=== PATIENT | male | born 1945 | race Caucasian/White ===

== ENCOUNTER → 2020-05-28 14:49 | Outpatient (BNVA) | payer OTHER, SELFPAY | PROVIDERS: Family Provider Internal Medicine; PCP Physician Assistant Medical; Visit Provider Urology | DX: N40.1 Benign prostatic hyperplasia with lower urinary tract symptoms (principal); N13.8 Other obstructive and reflux uropathy; R97.20 Elevated prostate specific antigen [PSA] | CPT/HCPCS: 81001 ==

== ENCOUNTER 2020-08-07 13:04 | Emergency (ER) | payer OTHER, SELFPAY ==
[2020-08-07 13:05] VITALS: BP 190/93; PULSE 58; RESP 18; TEMP 36.6; O2SAT 98; BMI 26.8
--- NOTE | 2020-08-07 13:32 | XR_ITS ---
WS: [id number] Exam: XR chest 1V portable [id number] Date/Time of Exam: 08/07/2020 1:32 PM Reason For Exam: hypotension Findings: The lungs are clear and fully expanded. Costophrenic angles are sharp. No infiltrates. Bronchovascula r relief appears normal. Cardiac silhouette is unremarkable. Bony elements are intact. XR/XR chest 1V portable [id number] IMPRESSION: Unremarkable chest radiograph.
--- NOTE | 2020-08-07 13:36 | ED_ITS ---
HPI - Arrhythmia/Palpitations General: Chief Complaint: Arrhythmia/Palpitations Stated Complaint: low bp/neck pain/left foot numbness/dizziness/fati Time Seen by Provider: 08/07/20 13:18 History of Present Illness: HPI narrative: Patient is a 75-year-old male with a history of hypertension, BPH, who presents to the emergency department with complaints of low blood pressure for about a month. The patient takes several medications for high blood pressure including lisinopril 40 mg twice a day, furosemide 40 mg daily, amlodipine 10 mg daily, tamsulosin 0.5 mg twice daily. About 1 month ago he started to notice that his blood pressure was low with systolic in the low 100s to high 90s and diastolic in the 40s. He was symptomatic with that including generalized weakness, dizziness, presyncope, but no syncopal episodes. He took it upon himself to reduce his blood pressure medications and eventually discontinued all of them. He states his heart rate would drop into the 30s sometimes. His normal resting heart rate is in the 40s. He finally called his primary care provider today and they asked him to go to the urgent care for evaluation but the urgent care stated under with illnesses like this and decided to send him to the emergency department for evaluation. He said his blood pressure was elevated this morning with systolic in the 150s but he did not take any of his antihypertensives. He is currently asymptomatic but has occasional left-sided neck pain. Associated symptoms: Deny nausea or vomiting Review of Systems General: Reports: 10 or more systems reviewed and unremarkable except in HPI and below Const: Denies: fever(s), chills or body aches Eyes: Denies: change in vision or blurry vision ENMT: Denies: throat pain, enlarged tonsils, odynophagia, hoarseness, mouth pain or swelling of lips/tongue Card: Denies: palpitations, irregular heart rhythm, edema or swelling of feet/ankles Resp: Denies: dyspnea, productive cough or non-productive cough GI: Denies: abdominal pain, nausea or vomiting : Denies: flank pain, dysuria, urinary frequency, urinary urgency or urinary hesitancy Musc: Denies: neck pain, back pain or extremity swelling Skin/Breast: Denies: rash, pruritus or erythema Neuro: Denies: headache(s), numbness in extremities or weakness in extremities Endo: Denies: polyuria, polydipsia or tired all the time PFSH ED PFSH: Medical History BPH w urinary obs/LUTS Elevated PSA Renal calculus Surgical History H/O colonoscopy H/O prostate biopsy H/O varicose vein ligation and stripping Family History Father Cancer PROSTATE Brother Cancer PROSTATE Mother Cancer COLON CANCER WITH METS Social History Smoking and tobacco status: former smoker Alcohol intake: current Alcohol intake frequency: 0-2 Drinks per Day Marital status: History of recent travel: No Physical Exam Const: COMMON NORMALS: no acute distress, average body habitus, patient oriented x3, no limitations, healthy appearing, alert and well nourished HENMT: COMMON NORMALS: normocephalic, atraumatic and moist oral mucous membranes HEAD & SCALP: normocephalic and atraumatic Eye: COMMON NORMALS: Equal, round and reactive pupils present, EOMs intact bilaterally, conjunctivae normal and no scleral icterus CONJUNCTIVA: Yes conjunctivae normal PUPIL: Yes Equal, round and reactive pupils present Neck/C-Spine: COMMON NORMALS: full ROM, supple, no meningeal signs, no JVD and No carotid bruits Chest: COMMONS NORMALS: normal inspection of the chest and normal palpation of entire chest wall Resp: COMMON NORMALS: normal respiratory effort, No retractions, No use of accessory muscles, clear to auscultation bilaterally and percussion normal AUSCULTATION: clear to auscultation bilaterally PERCUSSION: percussion normal Cardio: COMMON NORMALS: no JVD, regular rate, regular rhythm, S1 normal heart sound present, S2 normal heart sound present, No gallops present (Cardio), No clicks present (Cardio), No murmurs present (Cardio), No rub (Cardio) and Peripheral pulses 2+ throughout RATE: regular rate RHYTHM: regular rhythm HEART SOUNDS: S1 normal heart sound present and S2 normal heart sound present PERIPHERAL PULSES: Peripheral pulses 2+ throughout GI: COMMON NORMALS: Normal to inspection, nondistended, normoactive bowel sounds present, Soft to palpation, non-tender, No hepatosplenomegaly present, no masses and no bruits PALPATION: Yes Soft to palpation and Yes No hepatosplenomegaly present Extremity: COMMON NORMALS: normal to inspection, full ROM, capillary refill normal, no calf tenderness and no pedal edema Neuro: COMMON NORMALS: patient oriented x3 SENSORIUM/ORIENTATION: Yes alert MENINGEAL SIGNS: Yes no meningeal signs Skin: COMMON NORMALS: no rashes or lesions noted, no wounds, turgor normal, no jaundice, no petechiae and no mottling GENERAL SKIN EXAM: no rashes or lesions noted and turgor normal Course Reevaluation(s): Reevaluation #1: Discussed his lab and imaging findings with him. Negative for acute findings. I believe his symptoms are secondary to adverse effect of his antihypertensive. He states that in the last 6 months he has changed his diet and is eating mainly vegetables with no meats and he has lost about 20 pounds. I advised that he is probably not requiring as much antihypertensives as prior to losing weight and changing his diet so I advised that he speak with his primary care provider and adjust his antihypertensives. Advised that he start lisinopril at 40 mg daily only and not take any other of his hypertensives He should follow-up with his primary care provider. Time: 17:11 Vital Signs: Vital signs: Vital Signs Temperature 97.8 F 08/07/20 13:05 Pulse Rate 51 L 08/07/20 17:41 Respiratory Rate 18 08/07/20 17:41 Blood Pressure 174/80 08/07/20 17:41 Pulse Oximetry 100 08/07/20 17:41 MDM - Arrhythmia/Palpitations MDM Narrative: Medical decision making narrative: 75-year-old gentleman came in because he had had low blood pressure that was symptomatic at home. He had therefore stopped his blood pressure medications. Evaluation in the ED was unremarkable for any acute findings. He is advised to follow-up with his primary care provider for adjustment of his medications. His blood pressure was a little elevated here and he has been off his medications for at least 2 weeks. He is advised to start lisinopril only at 40 mg daily and to follow-up with his primary care provider. Medical Records: Attestation: I reviewed the patient's medical records. Lab Data: Attestation: I reviewed the patient's lab results. Labs: Lab Results 08/07/20 08/07/20 08/07/20 Range/Units 14:10 14:10 14:10 WBC 5.3 (4.0-10.0) 10^3/ uL RBC 4.48 (4.1-5.3) 10^6/u L Hgb 14.6 (11.7-16.6) g/dL Hct 44.4 (42.0-52.0) % MCV 99.1 H (80-94) fL MCH 32.6 (28.0-34.0) pg MCHC 32.9 (30.0-36.0) g/dL RDW 12.2 (12.1-15.1) % Plt Count 174 (130-400) 10^3/c mm MPV 10.6 H (7.4-10.4) fL Neut % (Auto) 62.9 % Lymph % (Auto) 27.5 % [place] % (Auto) 6.3 % Eos % (Auto) 2.3 % Baso % (Auto) 0.6 % Neut # (Auto) 3.32 (1.8-7.7) 10^3/u L Lymph # (Auto) 1.5 (0.8-4.8) 10^3/u L [place] # (Auto) 0.3 (0.2-0.9) 10^3/u L Eos # (Auto) 0.1 (0.0-0.8) 10^3/u L Baso # (Auto) 0.0 (0.0-0.1) 10^3/u L Nucleated RBC % (a uto) 0 % Nucleated RBCs # 0.0 /100WBC PT 13.80 (12.1-14.9) SECO NDS INR 1.03 (0.8-1.2) Sodium 141 (136-145) mmol/L Potassium 4.2 (3.5-5.1) mmol/L Chloride 107 (98-107) mmol/L Carbon Dioxide 27 (22-29) mmol/L Anion Gap 11.2 (5-19) BUN 15 (8-23) mg/dL Creatinine 0.6 L (0.7-1.2) mg/dL GFR Calculation Not Reportable Glucose 90 (65-115) mg/dL Calculated Osmolal ity 292 (285-295) mOsm/k g Calcium 9.8 (8.5-10.5) mg/dL Total Bilirubin 1.1 (0.15-1.2) mg/dL AST 18 (0-40) U/L ALT 24 (0-41) U/L Alkaline Phosphata se 60 (40-130) IU/L Troponin T Baselin e (0-15) ng/L Troponin T 120 Min [place] (0-15) ng/L Delta Troponin T (0-10) ABS# NT-Pro-B Natriuret Pep 163 H (0-125) pg/mL Total Protein 6.1 L (6.6-8.7) g/dL Albumin 4.1 (3.5-5.2) g/dL Globulin 2.0 (1.3-4.6) g/dL Urine Color (Yellow) Urine Appearance (CLEAR) Urine pH (5-7) Ur Specific Gravit y (1.005-1.030) Urine Protein (Negative) Urine Glucose (UA) (Normal) Urine Ketones (Negative) Urine Blood (Negative) Urine Nitrate (Negative) Urine Bilirubin (Negative) Urine Urobilinogen (Negative) mg/dL Ur Leukocyte Amira ase (Negative) Urine RBC (0-2) /hpf Urine WBC (0-5) /hpf Ur Squamous Epith Cells (0-5) /hpf Amorphous Sediment Urine Bacteria (NONE) /hpf Hyaline Casts /lpf 08/07/20 08/07/20 08/07/20 Range/Units 14:10 14:35 16:12 WBC (4.0-10.0) 10^3/ uL RBC (4.1-5.3) 10^6/u L Hgb (11.7-16.6) g/dL Hct (42.0-52.0) % MCV (80-94) fL MCH (28.0-34.0) pg MCHC (30.0-36.0) g/dL RDW (12.1-15.1) % Plt Count (130-400) 10^3/c mm MPV (7.4-10.4) fL Neut % (Auto) % Lymph % (Auto) % [place] % (Auto) % Eos % (Auto) % Baso % (Auto) % Neut # (Auto) (1.8-7.7) 10^3/u L Lymph # (Auto) (0.8-4.8) 10^3/u L [place] # (Auto) (0.2-0.9) 10^3/u L Eos # (Auto) (0.0-0.8) 10^3/u L Baso # (Auto) (0.0-0.1) 10^3/u L Nucleated RBC % (a uto) % Nucleated RBCs # /100WBC PT (12.1-14.9) SECO NDS INR (0.8-1.2) Sodium (136-145) mmol/L Potassium (3.5-5.1) mmol/L Chloride (98-107) mmol/L Carbon Dioxide (22-29) mmol/L Anion Gap (5-19) BUN (8-23) mg/dL Creatinine (0.7-1.2) mg/dL GFR Calculation Glucose (65-115) mg/dL Calculated Osmolal ity (285-295) mOsm/k g Calcium (8.5-10.5) mg/dL Total Bilirubin (0.15-1.2) mg/dL AST (0-40) U/L ALT (0-41) U/L Alkaline Phosphata se (40-130) IU/L Troponin T Baselin e 16 H (0-15) ng/L Troponin T 120 Min [place] 16.35 H (0-15) ng/L Delta Troponin T 0.35 (0-10) ABS# NT-Pro-B Natriuret Pep (0-125) pg/mL Total Protein (6.6-8.7) g/dL Albumin (3.5-5.2) g/dL Globulin (1.3-4.6) g/dL Urine Color Yellow (Yellow) Urine Appearance Clear (CLEAR) Urine pH 6 (5-7) Ur Specific Gravit y 1.015 (1.005-1.030) Urine Protein Trace (Negative) Urine Glucose (UA) Norm (Normal) Urine Ketones Negative (Negative) Urine Blood Neg (Negative) Urine Nitrate Negative (Negative) Urine Bilirubin Neg (Negative) Urine Urobilinogen Norm (Negative) mg/dL Ur Leukocyte Amira ase Negative (Negative) Urine RBC None (0-2) /hpf Urine WBC None (0-5) /hpf Ur Squamous Epith Cells 0-4 H (0-5) /hpf Amorphous Sediment Not Reportable Urine Bacteria Trace (NONE) /hpf Hyaline Casts 0-4 H /lpf Imaging Data^: CXR: Attestation: I personally reviewed and interpreted this imaging study as follows: Radiologist's impression: [address] [address] XRay Report Signed Patient: Aquilino Roger #: [id number] : 7Acct#:[id number] Age/Sex: 75 / MADM Date: 08/07/20 Loc: ERRoom/Bed: Attending Dr: Ordering Provider/Ordering MD: Ramiro Howard MD, [facility] [place] Date of Service: 08/07/20 Procedure(s): XR chest 1V portable [id number] Accession Number(s): [id number] Report Number: [id number] WS: [id number] Exam: XR chest 1V portable [id number] Date/Time of Exam: 08/07/2020 1:32 PM Reason For Exam: hypotension Findings: The lungs are clear and fully expanded. Costophrenic angles are sharp. No infiltrates. Bronchovascular relief appears normal. Cardiac silhouette is unremarkable. Bony elements are intact. XR/XR chest 1V portable [id number] IMPRESSION: Unremarkable chest radiograph. Dictated By:Ronni Cedeño DO Signed By:Andres Willis Date/Time:08/07/201402 DD/ 1402 EKG Data^: EKG 1: Attestation: I personally reviewed and interpreted this EKG as follows: EKG interpretation date: 08/07/20 EKG interpretation time: 13:13 Prior EKG tracings: not available for review Interpretation: Sinus bradycardia with first-degree AV block. Heart rate [address] changes. Other EKG comments: Chest X-Ray 08/07/20 13:32 IMPRESSION: Unremarkable chest radiograph. EKG 2: Attestation: I personally reviewed and interpreted this EKG as follows: EKG interpretation date: 08/07/20 EKG interpretation time: 15:41 Prior EKG tracings: available for review Interpretation: Sinus bradycardia. Heart rate [address] changes. Other EKG comments: Chest X-Ray 08/07/20 13:32 IMPRESSION: Unremarkable chest radiograph. Discharge Plan Discharge Patient Disposition: Home Clinical Impression: Adverse effect of other antihypertensive drugs, initial encounter Condition: Stable Prescriptions: New lisinopril 40 mg tablet 40 mg PO DAILY Qty: 30 RF: 0 Continued atorvastatin 20 mg tablet 20 mg PO DAILY RF: 0 melatonin 5 mg capsule 5 mg PO DAILY RF: 0 finasteride 5 mg tablet 5 mg PO DAILY Qty: 90 RF: 3 tamsulosin 0.4 mg capsule 0.4 mg PO BID Qty: 180 RF: 3 Held furosemide 40 mg tablet 40 mg PO DAILY RF: 0 Hold Instructions: Hold until you speak to your family doctor amlodipine 10 mg tablet 10 mg PO DAILY RF: 0 Hold Instructions: Hold until you speak to your family doctor Discontinued lisinopril 40 mg tablet 40 mg PO BID RF: 0 Discharge Orders: Discharge Order (Routine); Ordered 08/07/20 Ordered By: Ramiro Howard Referrals: Ralph Angeles [Primary Care Provider] - 1-3 days Discharge Diet: Usual diet Discharge Activity: Increase activity as tolerated Patient Instructions: Adverse Drug Reaction (ED) Activity Restrictions/Additional Instructions: Return for any new or worsening symptoms. Follow-up with your primary care provider within 3 days. Stop all your blood pressure medicines and take lisinopril only at 40 mg once a day. Discharge Date/Time: 08/07/20 17:42 Coding Level of Care Code ED Legal Coordinator for Chg Fwd Exam Comprehensive
[2020-08-07 14:29] LABS: Basophils % 0.6 %; Eosinophils # 0.1 10^3/uL (0.0-0.8); Eosinophils % 2.3 %; Hematocrit 44.4 % (42.0-52.0); Hemoglobin 14.6 g/dL (11.7-16.6); Lymphocytes # 1.5 10^3/uL (0.8-4.8); Lymphocytes % 27.5 %; Mean Corpuscular HGB Conc 32.9 g/dL (30.0-36.0); Mean Corpuscular Hemoglobin 32.6 pg (28.0-34.0); Mean Corpuscular Volume 99.1 fL (80-94); Mean Platelet Volume 10.6 fL (7.4-10.4); Monocytes # 0.3 10^3/uL (0.2-0.9); Monocytes % 6.3 %; Neutrophils # 3.32 10^3/uL (1.8-7.7); Neutrophils % 62.9 %; Nucleated Red Blood Cells % 0 %; Platelet Count 174 10^3/cmm (130-400); Red Blood Count 4.48 10^6/uL (4.1-5.3); Red Cell Distribution Width 12.2 % (12.1-15.1); White Blood Count 5.3 10^3/uL (4.0-10.0)
[2020-08-07 14:45] LABS: INR 1.03 (0.8-1.2)
[2020-08-07 14:51] LABS: Troponin(5th) Baseline 16 ng/L (0-15)
[2020-08-07 14:59] LABS: Alanine Aminotransferase 24 U/L (0-41); Albumin Level 4.1 g/dL (3.5-5.2); Alkaline Phosphatase 60 IU/L (40-130); Anion Gap 11.2 (5-19); Aspartate Amino Transferase 18 U/L (0-40); Blood Urea Nitrogen 15 mg/dL (8-23); Calcium 9.8 mg/dL (8.5-10.5); Carbon Dioxide 27 mmol/L (22-29); Chloride 107 mmol/L (98-107); Glucose 90 mg/dL (65-115); NT Pro B Type Natriuretic Pept 163 pg/mL (0-125); Osmolality Calculated 292 mOsm/kg (285-295); Potassium 4.2 mmol/L (3.5-5.1); Sodium 141 mmol/L (136-145); Total Bilirubin 1.1 mg/dL (0.15-1.2); Total Protein 6.1 g/dL (6.6-8.7)
[2020-08-07 15:18] LABS: Add Urine Microscopic? YES; Bilirubin Urine Neg (Negative); Blood Urine Neg (Negative); Glucose Urine UA Norm (Normal); Ketones Urine Negative (Negative); Leukocyte Esterase Urine Negative (Negative); Nitrate Urine Negative (Negative); Protein Urine Trace (Negative); Specific Gravity, Urine 1.015 (1.005-1.030); Urine Appearance Clear (CLEAR); Urine Color Yellow (Yellow); Urobilinogen Urine Norm (Negative); pH Urine 6 (5-7)
[2020-08-07 15:19] LABS: Bacteria Urine TRACE /hpf; Hyaline Casts Urine 0-4 /lpf; Squamous Epithelial Cell Urine 0-4 /hpf (0-5)
[2020-08-07 15:20] LABS: Add Urine Culture? No
[2020-08-07 16:54] LABS: Troponin 5 2HR 16.35 ng/L (0-15); Troponin 5 2HR Delta 0.35 ABS# (0-10)
[2020-08-07 17:41] VITALS: BP 174/80; PULSE 51; RESP 18; O2SAT 100
--- NOTE | 2020-08-07 17:47 | ECG_ITS ---
[facility] Test Date: 2020-08-07 Pat Name: Aquilino Roger Department: Room: Gender: Male Gasfitter: : 1945 Requested By: Ramiro Howard I Order Number: [id number] Reading MD: Measurements Intervals [place] Rate: 51 P: 48 SD: 236 QRS: 13 QRSD: 99 T: 47 QT: 404 QTc: 373 Interpretive Statements SINUS BRADYCARDIA WITH FIRST DEGREE AV BLOCK WITH OCCASIONAL SUPRAVENTRICULAR PREMATURE COMPLEXES No previous ECG available for comparison [id number]
--- NOTE | 2020-08-07 17:56 | ECG_ITS ---
[facility] Test Date: 2020-08-07 Pat Name: Aquilino Roger Department: Room: Gender: Male Respiratory Care Practitioner: : 1945 Requested By: Ramiro Howard I Order Number: [id number] Reading MD: Measurements Intervals [place] Rate: 46 P: -30 VA: 211 QRS: 12 QRSD: 102 T: 50 QT: 439 QTc: 386 Interpretive Statements SINUS BRADYCARDIA WITH SINUS ARRHYTHMIA WITH FIRST DEGREE AV BLOCK No previous ECG available for comparison [email or web address]
== END 2020-08-07 17:42 | disposition home or self-care (01) ==
PROVIDERS: Emergency Provider Family Medicine; PCP Physician Assistant Medical
DX: T88.7XXA Unspecified adverse effect of drug or medicament, initial encounter (principal); T46.5X5A Adverse effect of other antihypertensive drugs, initial encounter; Z87.891 Personal history of nicotine dependence
CPT/HCPCS: 12345; 71045; 80053; 81001; 83880; 84484; 85025; 85610; 93005; 99282; 99283

== ENCOUNTER 2020-11-07 12:26 | Emergency (ER) | payer OTHER, MEDICARE, SELFPAY ==
[2020-11-07 12:26] VITALS: BP 156/90; PULSE 61; RESP 18; TEMP 36.3; O2SAT 95; BMI 27.8
--- NOTE | 2020-11-07 12:33 | XR_ITS ---
WS: [id number] Exam: XR knee LT 3V* [id number] Date/Time of Exam: 11/07/2020 12:44 PM Reason For Exam: fall/pain There is a comminuted displaced fracture of the patella. The inferior fragment is somewhat rotated. A nterior soft tissue swelling noted. The remaining bony structures of the knee are intact. Moderate tr icompartmental DJD. No obvious joint effusion. XR/XR knee LT 3V* [id number] IMPRESSION: 1. Comminuted displaced fracture of the patella with anterior soft tissue swell ing. No other bony injury. 2. Moderate tricompartmental DJD.
--- NOTE | 2020-11-07 12:42 | ED_ITS ---
Documented by User: KUNAL Preciado 11/07/20 14:00 HPI - Extremity Injury (Lower) General: Chief Complaint: Extremity Injury, Lower Stated Complaint: FALL Time Seen by Provider: 11/07/20 12:33 Source: patient Mode of arrival: wheelchair Limitations: no limitations History of Present Illness: HPI Narrative: Patient is a nice 75-year-old male who presents to ED today for evaluation of a left knee injury. Patient tells me he was walking when he slipped on ice. He states his right leg slipped and then he landed directly onto his left knee. Patient has not been ambulatory since the fall. He has no other complaints other than left knee pain at this time. complaint: knee injury Onset (ago): hour(s) Injury: Left: knee Place: street/outdoors Severity: moderate Relieving factors: immobilization Exacerbating factors: weight bearing, movement and palpation Context: fall Associated symptoms: Reports inability to bear weight Other symptoms: none Review of Systems Card: Denies: chest pain Resp: Denies: dyspnea GI: Denies: nausea or vomiting Musc: Reports: joint pain (L knee), joint swelling (L knee) and limited range of motion (L knee secondary to pain/swelling); Denies: neck pain, back pain, extremity pain or extremity swelling Neuro: Denies: numbness in extremities, weakness in extremities or sensory changes [facility] ED PFSH: Medical History (Updated 11/07/20 @ 13:07 by KUNAL Preciado) BPH w urinary obs/LUTS Elevated PSA Renal calculus Surgical History H/O colonoscopy H/O prostate biopsy H/O varicose vein ligation and stripping Family History Father Cancer PROSTATE Brother Cancer PROSTATE Mother Cancer COLON CANCER WITH METS Social History Smoking and tobacco status: former smoker Alcohol intake: current Alcohol intake frequency: 0-2 Drinks per Day Marital status: History of recent travel: No Physical Exam Const: COMMON NORMALS: no acute distress, average body habitus, patient oriented x3, no limitations, healthy appearing, alert and well nourished ORIENTATION/CONSCIOUSNESS: Yes awake, Yes oriented to person, Yes oriented to place and Yes oriented to time Extremity: GENERAL: Yes normal exam except as noted OTHER: extreme tenderness and marked swelling noted to anterior L knee; there are no abrasions/lacerations; knee flexion very limited secondary to pain/swelling; no obvious joint laxity noted; extremity NV intact; no other pain noted to extremity apart from knee Neuro: COMMON NORMALS: patient oriented x3, no focal motor deficits and no sensory deficits noted SENSORIUM/ORIENTATION: Yes alert, Yes oriented to person, Yes oriented to place and Yes oriented to time Skin: COMMON NORMALS: no rashes or lesions noted GENERAL SKIN EXAM: no rashes or lesions noted Course Consultations: Consultation #1: Dr. Gregory-agrees with plan for knee immoblizer and will see in office; recommends PCR COVID test as plan will be for surgery on Wednesday. Vital Signs: Vital signs: Vital Signs Temperature 97.9 F 11/07/20 14:27 Pulse Rate 63 11/07/20 14:27 Respiratory Rate 16 11/07/20 14:27 Blood Pressure 145/63 11/07/20 14:27 Pulse Oximetry 95 11/07/20 14:27 MDM - Extremity Injury (Lower) MDM Narrative: Medical decision making narrative: Case management tried to schedule patient an appointment with Dr. Gregory however orthopedic office stated they cannot schedule this appointment as patient has [facility] insurance and he is not contracted through the [facility] at this time. Case management spoke to their office and Dr. Barrera has graciously agreed to see patient on Wednesday at 9 AM for evaluation. Patient was placed in knee in immobilizer, given crutches, and I spoke to him about the importance of ice and elevation to help with swelling. Return to ED precautions given. Imaging Data^: XR L knee: Radiologist's impression: [address] [address] XRay Report Signed Patient: Aquilino Roger Unit #: [id number] : 1945 Age/Sex: 75 / M ADM Date: 11/07/20 Loc: ER Room/Bed: Attending Dr: Ordering Provider/Ordering MD: Sunny Masters MD Date of Service: 11/07/20 Procedure(s): XR knee LT 3V* [id number] Accession Number(s): [id number] Report Number: [id number] WS: [id number] Exam: XR knee LT 3V* [id number] Date/Time of Exam: 11/07/2020 12:44 PM Reason For Exam: fall/pain There is a comminuted displaced fracture of the patella. The inferior fragment is somewhat rotated. Anterior soft tissue swelling noted. The remaining bony structures of the knee are intact. Moderate tricompartmental DJD. No obvious joint effusion. XR/XR knee LT 3V* [id number] IMPRESSION: 1. Comminuted displaced fracture of the patella with anterior soft tissue swelling. No other bony injury. 2. Moderate tricompartmental DJD. Dictated By: Ronni Cedeño DO Signed By: Ronni Cedeño DO Signed Date/Time: 11/07/20 1250 DD/ 1248 Discharge Plan Discharge Patient Disposition: Home Clinical Impression: Patellar fracture Qualifiers: Encounter type: initial encounter Fracture type: closed Fracture morphology: comminuted Fracture alignment: displaced Laterality: left Qualified Code(s): S82.042A - Displaced comminuted fracture of left patella, initial encounter for closed fracture Condition: Stable Prescriptions: New hydrocodone-acetaminophen 5-325 mg tablet 1 tab PO Q4H PRN (Reason: pain) Qty: 20 RF: 0 No Action atorvastatin 20 mg tablet 20 mg PO BID@0700,2200 RF: 0 furosemide 40 mg tablet See Rx Instructions .ROUTE .COMPLEX RF: 0 Hold Instructions: Hold until you speak to your family doctor amlodipine 10 mg tablet 10 mg PO DAILY@0700 RF: 0 Hold Instructions: Hold until you speak to your family doctor melatonin 5 mg capsule 5 mg PO DAILY@2200 RF: 0 tamsulosin 0.4 mg capsule 0.4 mg PO BID@0700,2200 RF: 0 lisinopril 40 mg tablet 40 mg PO DAILY@0700 RF: 0 Discharge Orders: Discharge ED (Routine); Ordered 11/07/20 Ordered By: Maida Desai Referrals: Geovanna Barrera MD [Physician] - Patient Instructions: Patellar Fracture (ED), Knee Immobilizer (ED) Activity Restrictions/Additional Instructions: Absolutely no weight-bearing on your left leg. You need to ice and elevate extremity as much as possible to aid in the reduction of swelling. You will see Dr. Barrera on Wednesday at 9am for a follow-up appointment. Coding Level of Care Code ED Mailroom Assistant for Chg Fwd Exam Expanded Problem Focused Documented by User: Wilber Goldsmith, 11/07/20 15:55 HPI - Extremity Injury (Lower) General: Chief Complaint: Extremity Injury, Lower Stated Complaint: FALL Time Seen by Provider: 11/07/20 12:33 [facility] ED PFSH: Medical History (Updated 11/07/20 @ 13:07 by KUNAL Preciado) BPH w urinary obs/LUTS Elevated PSA Renal calculus Surgical History H/O colonoscopy H/O prostate biopsy H/O varicose vein ligation and stripping Family History Father Cancer PROSTATE Brother Cancer PROSTATE Mother Cancer COLON CANCER WITH METS Social History Smoking and tobacco status: former smoker Alcohol intake: current Alcohol intake frequency: 0-2 Drinks per Day Marital status: History of recent travel: No Course Vital Signs: Vital signs: Vital Signs Temperature 97.9 F 11/07/20 14:27 Pulse Rate 63 11/07/20 14:27 Respiratory Rate 16 11/07/20 14:27 Blood Pressure 145/63 11/07/20 14:27 Pulse Oximetry 95 11/07/20 14:27 MDM - Extremity Injury (Lower) MDM Narrative: Medical decision making narrative: I supervised care provided to Aquilino Roger by the MACHINE INSTALLER/PA. Reviewed chart x- rays and course of care with MACHINE INSTALLER. Discharge Plan Discharge Patient Disposition: Home Clinical Impression: Patellar fracture Qualifiers: Encounter type: initial encounter Fracture type: closed Fracture morphology: comminuted Fracture alignment: displaced Laterality: left Qualified Code(s): S82.042A - Displaced comminuted fracture of left patella, initial encounter for closed fracture Condition: Stable Prescriptions: New hydrocodone-acetaminophen 5-325 mg tablet 1 tab PO Q4H PRN (Reason: pain) Qty: 20 RF: 0 No Action atorvastatin 20 mg tablet 20 mg PO BID@0700,2200 RF: 0 furosemide 40 mg tablet See Rx Instructions .ROUTE .COMPLEX RF: 0 Hold Instructions: Hold until you speak to your family doctor amlodipine 10 mg tablet 10 mg PO DAILY@0700 RF: 0 Hold Instructions: Hold until you speak to your family doctor melatonin 5 mg capsule 5 mg PO DAILY@2200 RF: 0 tamsulosin 0.4 mg capsule 0.4 mg PO BID@0700,2199 RF: 0 lisinopril 40 mg tablet 40 mg PO DAILY@0700 RF: 0 Discharge Orders: Discharge ED (Routine); Ordered 11/07/20 Ordered By: Maida Desai Referrals: Geovanna Barrera MD [Physician] - Patient Instructions: Patellar Fracture (ED), Knee Immobilizer (ED) Activity Restrictions/Additional Instructions: Absolutely no weight-bearing on your left leg. You need to ice and elevate extremity as much as possible to aid in the reduction of swelling. You will see Dr. Barrera on Wednesday at 9am for a follow-up appointment. Coding Level of Care Code ED Mailroom Assistant for Bert Fwd Exam Expanded Problem Focused
[2020-11-07 13:03] VITALS: BP 156/90; PULSE 58; PULSE 60; RESP 16; O2SAT 97
--- NOTE | 2020-11-07 13:53 | DCPLANNER ---
Addendum entered by Prema Small 11/11/20 15:56: Patient attended appointment scheduled for 11.11.[address] Barrera at [facility]. Original Note: cosmetic manager was asked to schedule a follow up appointment with ortho. Dr. Gregory is talent development consultant, but is not in network with the [facility]. cosmetic manager asked the clinic if another physician in the clinic would be able to see patient. cosmetic manager spoke with Rosalba, a follow up appointment is scheduled for Wednesday, November 11, 2020 at 9:[address] Barrera. cosmetic manager emailed patients information over a secure email to January with [facility] in the community for the auth to be started for patient with the [facility]. cosmetic manager informed ED physician
[2020-11-07 14:27] VITALS: BP 145/63; PULSE 63; RESP 16; TEMP 36.6; O2SAT 95
[2020-11-08 19:02] LABS: Coronavirus Test Green County Not Detected
--- NOTE | 2020-11-09 08:35 | PC.NURSE ---
Pt called and notified of negative COVID result.
== END 2020-11-07 14:40 | disposition home or self-care (01) ==
PROVIDERS: Emergency Provider Physician Assistant; PCP Physician Assistant Medical
DX: S82.042A Displaced comminuted fracture of left patella, initial encounter for closed fracture (principal); Z87.891 Personal history of nicotine dependence; W00.0XXA Fall on same level due to ice and snow, initial encounter
CPT/HCPCS: 12345; 29530; 73562; 87635; 99281; 99283; E0114

== ENCOUNTER → 2020-11-11 09:52 | Outpatient (BNVA) | payer OTHER, SELFPAY | PROVIDERS: PCP Physician Assistant Medical; Referring Provider Family Medicine; Visit Provider Specialist | DX: S82.042A Displaced comminuted fracture of left patella, initial encounter for closed fracture (principal) | CPT/HCPCS: 73560 ==

== ENCOUNTER 2020-11-12 09:24 | Outpatient (CLI) | payer OTHER, SELFPAY ==
--- NOTE | 2020-11-12 09:30 | CT_ITS ---
WS: [id number] CT LEFT KNEE, NONCONTRAST, 3-D RECONSTRUCTIONS. HISTORY: S82.042A - Displaced comminuted fracture of left patella, initial encounter for closed fract ure Technique: All CT scans at [facility] use at least one of these dose optimization techniq ues: automated exposure control; mA and/or kV adjustment per patient size (includes targeted exams wh ere dose is matched to clinical indication); or iterative reconstruction. DLP: 248.92 mGy.cm COMPARISON: 11/11/2020 Acute comminuted patellar fracture. Multiple fragments within the patella. Within the superior third of the patella is a distracted fracture. Fracture is distracted 13 mm. Additional fracture through th e inferior third of the patella by 3 mm. Very slight lateral subluxation of the patella. Th ere is also fracture fragment displaced laterally by 8 mm. Tibial plateau and proximal fibula are intact. Femoral condyles are intact. Chondrocalcinosis in the medial and lateral compartments. There is a very large amount of soft tissue edema and hemorrhage surrounding the patella. Small supra patellar joint effusion. CT/CT knee LT wo con* [id number] IMPRESSION: 1. Markedly comminuted fractures involving the patella with displacement of mu ltiple fracture fragments. 2. Large amount of soft tissue edema surrounding the patella. 3. No additional fractures. 4. Chondrocalcinosis in the medial and lateral compartments.
== END 2020-11-12 09:25 | disposition home or self-care (01) ==
LOC: RAD 09:25
PROVIDERS: PCP Physician Assistant Medical; Visit Provider Specialist
DX: S82.042A Displaced comminuted fracture of left patella, initial encounter for closed fracture (principal); X58.XXXA Exposure to other specified factors, initial encounter; R60.0 Localized edema; M11.262 Other chondrocalcinosis, left knee
CPT/HCPCS: 73700; L1812

== ENCOUNTER 2020-11-12 16:53 | Day surgery (SDC) | payer OTHER, SELFPAY ==
[2020-11-11 17:37] VITALS: BMI 27.8
[2020-11-12] VITALS (8 sets, daily range): BP systolic 114–144; BP diastolic 55–75; PULSE 57–68; RESP 16–22; TEMP 36.4–37.1; O2SAT 95–100
--- NOTE | 2020-11-12 | XR_ITS ---
WS: [id number] C-ARM RADIOGRAPHS LEFT KNEE; 3 IMAGES HISTORY: OR PICS COMPARISON: 2020 Intraoperative imaging with stabilization using pins and cerclage wires of the markedly comminuted pa tellar fracture. Fractures are now in good position and alignment. XR/XR knee LT 1-2V 65885 IMPRESSION: Status post fixation comminuted patellar fracture in good alignment.
--- NOTE | 2020-11-12 | SCC_ITS ---
Procedure Done: Open reduction internal fixation left comminuted displaced patella fracture with cerclage wire and tension band 12.2 seconds of fluoroscopic guidance, for a cumulative dose of 0.67 mGy, was provided to Dr. Barrera by the radiology department. C-arm images of the LEFT knee were saved for the patient's permanent record. [facility]
--- NOTE | 2020-11-12 11:46 | ECG_ITS ---
[facility] Test Date: 2020-11-12 Pat Name: Aquilino Roger Department: Room: Gender: Male Operational Trainer: vida [place]: 1945 Requested By: Geovanna Barrera Order Number: [id number] Geoffrey MD: OSMIN PECK Measurements Intervals Tabiona Rate: 65 P: CO: QRS: 21 QRSD: 103 T: 55 QT: 386 QTc: 404 Interpretive Statements Sinus rythm with sinus arrythmia ABNORMAL RHYTHM ECG Compared to ECG 08/07/2020 15:41:58 Sinus bradycardia no longer present Sinus arrhythmia no longer present First degree AV block no longer present Electronically Signed On 11-12-2020 18:09:34 FASHION SUPERVISOR by OSMIN PECK [id number]
[2020-11-12] MEDS: sodium chloride 0.9% 1,000 ML 30 ML IV (12:26)
[2020-11-12] MEDS: CELEcoxib 200 mg Capsule 400 MG PO (12:27)
--- NOTE | 2020-11-12 12:43 | W.PM.OPSUD ---
Surgery/Procedure H&P Update DATE OF PROCEDURE: November 12, 2020 DATE H&P PERFORMED: 11/11/20 H&P UPDATE INFORMATION: I have reviewed H&P completed within last 30 days, I have examined patient prior to procedure, No changes to prior documentation and H&P is in [facility] [place] on date indicated PREOP DIAGNOSIS: Left patella fracture PLANNED PROCEDURE: Operation Date: 11/12/20 13:25 Proposed Procedures p ORIF Patella left 10996 S82.042A(Left) - Geovanna Barrera MD Related Problem List Diagnoses (1) Patellar fracture: Qualifiers: Encounter type: initial encounter Fracture alignment: displaced Fracture morphology: comminuted Fracture type: closed Laterality: left Qualified Code(s): S82.042A - Displaced comminuted fracture of left patella, initial encounter for closed fracture
--- NOTE | 2020-11-12 13:01 | ANES.PREANE2 ---
Pre-Anesthetic Assessment Pre-Anesthetic Assessment: Height/Weight: Height 1.83 m Weight 92.986 kg Temp Pulse Resp BP Pulse Ox 98.7 F 65 18 140/75 98 11/12/20 11:55 11/12/20 11:55 11/12/20 11:55 11/12/20 11:55 11/12/20 11:55 Preop Diagnosis: Left patella fracture Proposed Procedure: Operation Date: 11/12/20 13:25 Proposed Procedures p ORIF Patella left 16215 S82.042A(Left) - Geovanna Barrera MD Familial anesthetic complications: None Was Beta Radha taken within 24 hours: N/A Last intake: Intake Last Liquid Date 11/11/20 Last Liquid Time 19:00 Last Solid Date 11/11/20 Last Solid Time 19:00 Social: Social History: No alcohol and No tobacco Exam: Pre-Anes Outpt Exam: alert, oriented x 3, clear to auscultation bilaterally and regular rate & rhythm Airway: Cervical ROM: WNL MP: 2 Dentition: Other (5 missing teeth) CV/HEM: CV/HEM: HTN : : Chronic renal Insufficiency Metabolic: Metabolic: Hyperlipidemia Anesthetic Plan: ASA status: 3 Anesthesia: General Risk of > 500 ml blood loss (7ml/kg in children): No Meds/Allergies Current Medications: Current Medications Generic Name Dose Route Start Last Admin Trade Name Freq PRN Reason Stop Dose Admin Sodium Chloride 1,000 mls @ 30 ml s/hr 11/12/20 11:45 11/12/20 12:26 Sodium Chloride 0.9% IV 11/13/20 11:44 30 mls/hr .Q24H EDUARD Administration PFSH Anesthesia PFSH: Medical History BPH w urinary obs/LUTS Elevated PSA Renal calculus Surgical History H/O colonoscopy H/O prostate biopsy H/O varicose vein ligation and stripping Family History Father Cancer PROSTATE Brother Cancer PROSTATE Mother Cancer COLON CANCER WITH METS Social History Smoking and tobacco status: former smoker Alcohol intake: current Alcohol intake frequency: 0-2 Drinks per Day Marital status: History of recent travel: No Data Anesthesia Cardiac Studies: No Data to Display
[2020-11-12 14:19] LABS: Alanine Aminotransferase 17 U/L (0-41); Albumin Level 3.6 g/dL (3.5-5.2); Alkaline Phosphatase 61 IU/L (40-130); Aspartate Amino Transferase 17 U/L (0-40); Blood Urea Nitrogen 19 mg/dL (8-23); Calcium 9.6 mg/dL (8.5-10.5); Carbon Dioxide 26 mmol/L (22-29); Chloride 107 mmol/L (98-107); Globulin 2.9 g/dL (1.3-4.6); Glucose 94 mg/dL (65-115); Osmolality Calculated 298 mOsm/kg (285-295); Sodium 143 mmol/L (136-145); Total Bilirubin 1.5 mg/dL (0.15-1.2); Total Protein 6.5 g/dL (6.6-8.7)
[2020-11-12] MEDS: ceFAZolin 1,000 mg SDV 1000 MG IRRIGATION (14:55)
[2020-11-12] MEDS: fentaNYL 50 mcg/mL INJ 2mL IVP (16:00)
--- NOTE | 2020-11-12 16:06 | PM.OP ---
Operative Report Date of procedure: November 12, 2020 Pre-op Diagnosis: Left patella fracture, comminuted and displaced Post-op diagnosis: same Post-op Findings: Comminuted fracture patella with displacement. Procedure Done: Open reduction internal fixation left comminuted displaced patella fracture with cerclage wire and tension band Implants: 2 x 0.062 K wires with cerclage and tension banding Specimens removed/disposition: Bone, disposed of Pathology: none sent Surgeon: Geovanna Barrera Rodeo Rider: Kaila Rivera or technicians Anesthesia: General (Intubated, ASA 3) Estimated blood loss (mL): 25 Tourniquet time (min): 20 Tourniquet time: At 250 mmHg, released part way through the case to have access IV fluids (mL): 600 Urine output: No Veliz Complications: None Findings: Comminuted patella fracture with 2 large pieces. One superior, and a more distal fragment with slight comminution. Removal of bony fragments within the joint. Condition: stable Disposition: PACU (Then home) Brief History: This 75-year-old gentleman gentleman was in his usual state of health when he slipped on some ice and fell directly onto his left knee. He was found to have a comminuted displaced left patellar fracture. He presented to the office having had his Covid testing already. CT scan was ordered and we were able to get the CT scan and approval for surgery today even though he was only seen yesterday in the office. He was therefore scheduled for the above procedure after risks and complications were discussed with him. He understood and wished to proceed. Procedure: Patient was seen in the preoperative holding area and leg was marked. Patient was brought to the operating theater and placed on the operating room table. After undergoing adequate general anesthesia, intubated, ASA 3, the patient's left lower extremity was prepped and draped in usual fashion utilizing DuraPrep. The leg was draped free. Fluoroscopy was used throughout the surgical procedure. We did have a sterile tourniquet high on the left lower extremity. This was elevated to 250 mmHg and total tourniquet time was 20 minutes as it was removed partially through the procedure to allow access to the proximal aspect of the patella without bending the knee. Tourniquet elevation followed exsanguination of the leg. A surgical pause was performed. At the time of the surgical pause we identified the site and side of surgery as well as the patient's identity and availability of equipment. We also confirmed appropriate administration of IV antibiotics, Ancef 2 g. Following the above, an incision was made centering over the patient's displaced comminuted patella fracture. The incision was continued proximally and distally longitudinally over the patella to allow access to the fracture. The fracture was evaluated, and comminuted fragments were removed. Hematoma was also removed. Small fragments of bone were removed from intra-articularly and the wound was irrigated with the pulse lavage. We were able to reduce the remaining fracture anatomically anatomically. This was held with a clamp while we placed 2 vertical 0.062 K wires from proximal to distal to allow for cerclage and tension band [id number] wiring. Wires were passed. They were tightened. Fluoroscopy demonstrated near anatomic positioning of the fracture fragments. The wound was copiously irrigated once again. We then closed the wound with 0 Vicryl in the fascial tissues, 2-0 Monocryl in the subcutaneous tissues, and the skin was closed with skin elliot. Sterile dressing was placed consisting of Xeroform gauze, 4 x 4's, sterile soft roll and an Chaim wrap. The patient was then placed in a [place] brace with range of motion from 0 to 30 degrees. He may be weightbearing as tolerated, but is not to remove the brace and is only to bend the knee within this restricted range. The procedure was well tolerated without complication. The patient will be discharged home to follow-up in my office as scheduled. Associated Problem List Diagnoses (1) Patellar fracture: Qualifiers: Encounter type: initial encounter Fracture alignment: displaced Fracture morphology: comminuted Fracture type: closed Laterality: left Qualified Code(s): S82.042A - Displaced comminuted fracture of left patella, initial encounter for closed fracture
[2020-11-12] MEDS: HYDROcodone-acetaminophen 5-325 mg Tablet 1 TAB PO ×2 (16:40→17:12)
--- NOTE | 2020-11-13 05:35 | ANE.PACU2 ---
Inpatient post-anesthesia follow up: Airway intact: Yes Vital signs: Temperature 97.6 F Pulse Rate 68 Respiratory Rate 18 Blood Pressure 144/55 Pulse Oximetry 96 Oxygen Delivery Me thod Room Air Oxygen Flow Rate 8 Fraction of Inspir ed Oxygen Hydration adequate: Yes Nausea and vomiting: No Pain level: 3 Mental status: Baseline
== END 2020-11-12 17:43 | disposition home or self-care (01) ==
LOC: OR 16:56
PROVIDERS: PCP Physician Assistant Medical; Visit Provider Specialist
PROC: (CPT 27524; principal; 2020-11-12 13:05)
DX: S82.042A Displaced comminuted fracture of left patella, initial encounter for closed fracture (principal); X58.XXXA Exposure to other specified factors, initial encounter; I10 Essential (primary) hypertension; E78.5 Hyperlipidemia, unspecified; N40.1 Benign prostatic hyperplasia with lower urinary tract symptoms; N13.8 Other obstructive and reflux uropathy; Z87.891 Personal history of nicotine dependence
CPT/HCPCS: 27524; 12345; 36415; 73560; 76000; 80053; 85025; 93005; 96365; C1713; J0131; J0690; J1100; J2405; J2704; J3010; J3490; J7030

== ENCOUNTER → 2020-12-02 10:18 | Outpatient (BNVA) | payer OTHER, SELFPAY | PROVIDERS: PCP Physician Assistant Medical; Visit Provider Specialist | DX: Z48.89 Encounter for other specified surgical aftercare (principal); S82.002D Unspecified fracture of left patella, subsequent encounter for closed fracture with routine healing; X58.XXXD Exposure to other specified factors, subsequent encounter | CPT/HCPCS: 73560 ==

== ENCOUNTER → 2020-12-23 09:50 | Outpatient (BNVA) | payer OTHER, SELFPAY | PROVIDERS: PCP Physician Assistant Medical; Visit Provider Specialist | DX: Z48.89 Encounter for other specified surgical aftercare (principal); S82.042D Displaced comminuted fracture of left patella, subsequent encounter for closed fracture with routine healing; Z98.890 Other specified postprocedural states; W00.0XXD Fall on same level due to ice and snow, subsequent encounter | CPT/HCPCS: 73562 ==

== ENCOUNTER → 2021-01-08 10:43 | Outpatient (BNVA) | payer OTHER, SELFPAY | PROVIDERS: PCP Physician Assistant Medical; Visit Provider Specialist | DX: Z48.89 Encounter for other specified surgical aftercare (principal); S82.042A Displaced comminuted fracture of left patella, initial encounter for closed fracture; X58.XXXA Exposure to other specified factors, initial encounter | CPT/HCPCS: 73562; 73564 ==

== ENCOUNTER 2021-01-08 12:09 | Outpatient (CLI) | payer OTHER, SELFPAY | END 2021-01-08 12:10 | disposition home or self-care (01) | LOC: SPT 12:13 | PROVIDERS: PCP Physician Assistant Medical; Visit Provider Specialist | DX: Z48.89 Encounter for other specified surgical aftercare (principal) | CPT/HCPCS: 97760; L1812 ==

== ENCOUNTER → 2021-02-06 10:32 | Outpatient (BNVA) | payer OTHER, SELFPAY | PROVIDERS: PCP Physician Assistant Medical; Visit Provider Specialist | DX: Z48.89 Encounter for other specified surgical aftercare (principal); S82.042A Displaced comminuted fracture of left patella, initial encounter for closed fracture; X58.XXXA Exposure to other specified factors, initial encounter | CPT/HCPCS: 73560; 73565 ==

== ENCOUNTER 2021-02-18 14:20 | Outpatient (CLI) | payer OTHER, MEDICARE, SELFPAY ==
--- NOTE | 2021-02-18 14:34 | XRR_ITS ---
PROCEDURE INFORMATION: Exam: XR Abdomen Exam date and time: 02/18/2021 2:35 PM Age: 75 years old Clinical indication: Condition or disease; Kidney or ureter condition; Calculus (stone) in kidney; Additional info: Renal calculus TECHNIQUE: Imaging protocol: XR of the abdomen. Views: Frontal supine view of the abdomen. 1 View. COMPARISON: CR XR knees AP WB w LT lmt ORTH 02/06/2021 10:39 AM FINDINGS: Gastrointestinal tract: Normal. No bowel dilation. Bones/joints: Unremarkable. XR/XR KUB [id number] IMPRESSION: No acute findings.
== END 2021-02-18 14:21 | disposition home or self-care (01) ==
PROVIDERS: PCP Physician Assistant Medical; Visit Provider Urology
DX: N20.0 Calculus of kidney (principal); R97.20 Elevated prostate specific antigen [PSA]; N40.1 Benign prostatic hyperplasia with lower urinary tract symptoms; N13.8 Other obstructive and reflux uropathy
CPT/HCPCS: 74018; 81003; 84153

== ENCOUNTER → 2021-05-12 11:29 | Outpatient (BNVA) | payer OTHER, MEDICARE, SELFPAY | PROVIDERS: PCP Physician Assistant Medical; Visit Provider Specialist | DX: Z48.89 Encounter for other specified surgical aftercare (principal); S82.042A Displaced comminuted fracture of left patella, initial encounter for closed fracture; X58.XXXA Exposure to other specified factors, initial encounter | CPT/HCPCS: 73560; 73565 ==

== ENCOUNTER → 2021-07-09 11:47 | Outpatient (BNVA) | payer OTHER, MEDICARE, SELFPAY | PROVIDERS: PCP Physician Assistant Medical; Visit Provider Specialist | DX: S82.042A Displaced comminuted fracture of left patella, initial encounter for closed fracture (principal); X58.XXXA Exposure to other specified factors, initial encounter | CPT/HCPCS: 73560; 73565 ==

== ENCOUNTER → 2021-07-14 11:14 | Outpatient (BNVA) | payer OTHER, SELFPAY | PROVIDERS: PCP Physician Assistant Medical; Visit Provider Specialist | DX: Z20.822 Contact with and (suspected) exposure to COVID-19 (principal) | CPT/HCPCS: 87635 ==

== ENCOUNTER 2021-07-18 07:54 | Day surgery (SDC) | payer OTHER, SELFPAY ==
[2021-07-17 15:58] VITALS: BMI 28.2
[2021-07-18] VITALS (8 sets, daily range): BP systolic 120–157; BP diastolic 71–85; PULSE 49–87; RESP 17–18; TEMP 36.1–36.2; O2SAT 91–97
--- NOTE | 2021-07-18 | XR_ITS ---
WS: [id number] XR knee LT 1-2V [id number] REASON FOR EXAM: hardware removal FINDINGS: Removal of surgical hardware from the left patella. Healed patellar fracture. XR/XR knee LT 1-2V 06063 IMPRESSION: Hardware removal without abnormality.
--- NOTE | 2021-07-18 | SCC_ITS ---
Procedure Done: Hardware removal x4 left patella 6.8 seconds of fluoroscopic guidance, for a cumulative dose of 0.54 mGy, was provided to Dr. Barrera by the radiology department. C-arm images of the LEFT knee were saved for the patient's permanent record. [facility]
[2021-07-18] MEDS: acetaminophen 1,000 MG/100 ML PIGGYBACK 400 MG IV (08:30)
--- NOTE | 2021-07-18 08:30 | W.PM.OPSUD ---
Surgery/Procedure H&P Update DATE OF PROCEDURE: July 18, 2021 DATE H&P PERFORMED: 07/09/21 H&P UPDATE INFORMATION: I have reviewed H&P completed within last 30 days, I have examined patient prior to procedure, No changes to prior documentation and H&P is in [facility] EMR on date indicated PREOP DIAGNOSIS: Painful orthopedic hardware left knee PLANNED PROCEDURE: Operation Date: 07/18/21 09:25 Proposed Procedures p Hardware Removal Knee 80604 T84.84XA S82.042S(Left) - Geovanna Barrera MD Related Problem List Diagnoses (1) Painful orthopaedic hardware:
--- NOTE | 2021-07-18 08:40 | ANES.PREANE2 ---
Pre-Anesthetic Assessment Pre-Anesthetic Assessment: Height/Weight: Height 1.83 m Weight 94.347 kg Temp Pulse Resp BP Pulse Ox 97.0 F L 49 L 18 157/85 97 07/18/21 08:18 07/18/21 08:18 07/18/21 08:18 07/18/21 08:18 07/18/21 08:18 Preop Diagnosis: Painful orthopedic hardware left knee Proposed Procedure: Operation Date: 07/18/21 09:25 Proposed Procedures p Hardware Removal Knee 87964 T84.84XA S82.042S(Left) - Geovanna Barrera MD Was Beta Radha taken within 24 hours: N/A Was Clonidine taken within 24 hours: N/A Last intake: Intake Last Liquid Date 07/17/21 Last Liquid Time 22:30 Last Solid Date 07/17/21 Last Solid Time 22:30 Social: Social History: No alcohol and No tobacco Exam: Pre-Anes Outpt Exam: alert, oriented x 3, clear to auscultation bilaterally and regular rate & rhythm Airway: Submandibular: WNL Cervical ROM: WNL MP: 2 Dentition: Full CV/HEM: CV/HEM: HTN Metabolic: Metabolic: Hyperlipidemia Anesthetic Plan: ASA status: 2 Anesthesia: General Risk of > 500 ml blood loss (7ml/kg in children): No PFSH Anesthesia PFSH: Medical History (Updated 07/10/21 @ 09:56 by Geovanna Barrera MD) BPH w urinary obs/LUTS Elevated PSA Renal calculus Surgical History H/O colonoscopy H/O prostate biopsy H/O varicose vein ligation and stripping Family History Father Cancer PROSTATE Brother Cancer PROSTATE Mother Cancer COLON CANCER WITH METS Social History Alcohol intake: current Alcohol intake frequency: 0-2 Drinks per Day Marital status: History of recent travel: No Data Anesthesia Cardiac Studies: No Data to Display
[2021-07-18] MEDS: sodium chloride 0.9% 1,000 ML 30 ML IV (08:43)
[2021-07-18] MEDS: CELEcoxib 100 mg Capsule 400 MG PO (08:43)
[2021-07-18 08:50] LABS: Basophils % 0.8 %; Eosinophils # 0.2 10^3/uL (0.0-0.8); Eosinophils % 3.2 %; Hematocrit 45.1 % (42.0-52.0); Lymphocytes # 1.8 10^3/uL (0.8-4.8); Lymphocytes % 33.9 %; Mean Corpuscular HGB Conc 33.3 g/dL (30.0-36.0); Mean Corpuscular Hemoglobin 32.5 pg (28.0-34.0); Mean Corpuscular Volume 97.6 fl (80-94); Monocytes # 0.4 10^3/uL (0.2-0.9); Monocytes % 7.2 %; Neutrophils # 2.87 10^3/uL (1.8-7.7); Neutrophils % 54.7 %; Nucleated Red Blood Cells % 0 %; Platelet Count 194 10^3/cmm (130-400); Red Blood Count 4.62 10^6/uL (4.1-5.3); Red Cell Distribution Width 11.7 % (12.1-15.1); White Blood Count 5.3 10^3/uL (4.0-10.0)
[2021-07-18 09:05] LABS: Urine Appearance Cloudy (CLEAR); Urine Color Yellow (Yellow)
[2021-07-18 09:06] LABS: Add Urine Microscopic? YES; Alanine Aminotransferase 23 U/L (0-41); Albumin Level 3.9 g/dL (3.5-5.2); Alkaline Phosphatase 67 IU/L (40-130); Anion Gap 10.8 (5-19); Aspartate Amino Transferase 19 U/L (0-40); Bilirubin Urine Neg (Negative); Blood Urea Nitrogen 14 mg/dL (8-23); Blood Urine Neg (Negative); Calcium 9.5 mg/dL (8.5-10.5); Carbon Dioxide 29 mmol/L (22-29); Chloride 106 mmol/L (98-107); Globulin 2.7 g/dL (1.3-4.6); Glucose 83 mg/dL (65-115); Glucose Urine UA Norm (Normal); Ketones Urine Negative (Negative); Leukocyte Esterase Urine Negative (Negative); Nitrate Urine Negative (Negative); Osmolality Calculated 294 mOsm/kg (285-295); Potassium 3.8 mmol/L (3.5-5.1); Protein Urine Neg (Negative); Sodium 142 mmol/L (136-145); Total Bilirubin 1.1 mg/dL (0.15-1.2); Total Protein 6.6 g/dL (6.6-8.7); Urobilinogen Urine Norm (Negative); pH Urine 7 (5-7)
[2021-07-18 09:18] LABS: Add Urine Culture? No; Amorphous Sediment Urine 2+ /hpf; Bacteria Urine 2+ /hpf
--- NOTE | 2021-07-18 10:45 | P.OP_ITS ---
Operative Report Date of procedure: July 18, 2021 Pre-op Diagnosis: Painful orthopedic hardware left knee Pre-op Diagnosis: Following displaced comminuted patella fracture Post-op diagnosis: same Procedure Done: Hardware removal x4 left patella Implants: Removed 2 pins and 2 wires through separate incisions Specimens removed/disposition: Hardware, disposed of Pathology: none sent Surgeon: Geovanna Barrera Regulatory Affairs Internship: [facility] operating room technicians Anesthesia: General (Per LMA, ASA 2) Estimated blood loss (mL): 5 Tourniquet time (min): 42 Tourniquet time: At 250 mmHg without exsanguination IV fluids (mL): 900 Urine output (mL): 0 Urine output: No Veliz Complications: None Findings: Retained hardware Condition: stable Disposition: PACU (Return to same-day surgery for discharge to home) Brief History: This 76-year-old gentleman gentleman was in his usual state of health when he slipped on some ice and fell directly onto his left knee. He was found to have a comminuted displaced left patellar fracture. Secondary to the displacement and comminution, the patient underwent open reduction internal fixation utilizing 2 cerclage wires and 2 proximal to distal pins. The pins have become prominent, and after discussion, the patient was scheduled for removal of hardware. Questions were answered preoperatively and consents were signed. Procedure: Patient was seen in the preoperative holding area and leg was marked. Patient was brought to the operating theater and placed on the operating room table. After undergoing adequate general anesthesia, LMA, ASA 2, the patient's left lower extremity was prepped and draped in usual fashion utilizing DuraPrep. The leg was draped free. Fluoroscopy was used throughout the surgical procedure. We did have a sterile tourniquet high on the left lower extremity. This was elevated to 250 mmHg and total tourniquet time was 42 minutes. The leg was not exsanguinated prior to elevation. A surgical pause was performed. At the time of the surgical pause we identified the site and side of surgery as well as the patient's identity and availability of equipment. We also confirmed appropriate administration of IV antibiotics, Ancef 2 g. Following the above, the patient's previous incision was entered in the midportion centering over the patella. Dissection continued through skin and soft tissues using a scalpel. We then elevated soft tissues to allow access to the previous hardware. Fluoroscopy was utilized to isolate the hardware prior to making a longitudinal incision over top of it for removal. We were able to remove all 4 pieces of hardware uneventfully. The wound was copiously irrigated once again. We then closed the wound with 0 Vicryl areas opened over the patella, as well as proximal and distal to the patella for hardware removal. Following this,, 2-0 Monocryl was used in an interrupted fashion to close the subcutaneous tissues, and the skin was closed with skin elliot. Sterile dressing was placed consisting of Xeroform gauze, 4 x 4's, sterile soft roll and an Chaim wrap. He may be weightbearing as tolerated. The procedure was well tolerated without complication. The patient will be discharged home to follow-up in my office as scheduled. Associated Problem List Diagnoses (1) Painful orthopaedic hardware: (2) Patellar fracture: Qualifiers: Encounter type: sequela Fracture alignment: displaced Fracture morphology: comminuted Fracture type: closed Laterality: left Qualified Code(s): S82.042S - Displaced comminuted fracture of left patella, sequela
[2021-07-18] MEDS: fentaNYL 50 mcg/mL INJ 2mL IVP (10:51)
--- NOTE | 2021-07-18 13:19 | ANE.PACU2 ---
Inpatient post-anesthesia follow up: Airway intact: Yes Vital signs: Temperature 97.0 F Pulse Rate 57 Respiratory Rate 18 Blood Pressure 151/84 Pulse Oximetry 96 Oxygen Delivery Me thod Room Air Oxygen Flow Rate Fraction of Inspir ed Oxygen Hydration adequate: Yes Nausea and vomiting: No Pain level: 2 Mental status: Baseline
== END 2021-07-18 11:52 | disposition home or self-care (01) ==
PROVIDERS: PCP Physician Assistant Medical; Visit Provider Specialist
PROC: (CPT 20680; principal; 2021-07-18 09:15)
DX: T84.84XA Pain due to internal orthopedic prosthetic devices, implants and grafts, initial encounter (principal); I10 Essential (primary) hypertension; E78.5 Hyperlipidemia, unspecified; N40.1 Benign prostatic hyperplasia with lower urinary tract symptoms; N13.8 Other obstructive and reflux uropathy
CPT/HCPCS: 20680; 36415; 73560; 76000; 80053; 81001; 85025; 96365; J0690; J1100; J2405; J2704; J3010; J3490; J7030

== ENCOUNTER → 2021-08-04 14:20 | Outpatient (BNVA) | payer OTHER, SELFPAY | PROVIDERS: PCP Physician Assistant Medical; Visit Provider Specialist | DX: Z98.890 Other specified postprocedural states (principal) | CPT/HCPCS: 73560; 73565 ==

== ENCOUNTER 2021-12-11 14:27 | Outpatient (CLI) | payer OTHER, SELFPAY ==
[2021-12-11 15:27] LABS: Basophils % 0.6 %; Eosinophils # 0.1 10^3/uL (0.0-0.8); Eosinophils % 1.7 %; Hemoglobin 15.2 g/dL (11.7-16.6); Lymphocytes # 1.7 10^3/uL (0.8-4.8); Lymphocytes % 31.6 %; Mean Corpuscular HGB Conc 34.5 g/dL (30.0-36.0); Mean Corpuscular Volume 95.7 fl (80-94); Mean Platelet Volume 10.7 fL (7.4-10.4); Monocytes # 0.4 10^3/uL (0.2-0.9); Monocytes % 8.2 %; Neutrophils # 3.11 10^3/uL (1.8-7.7); Neutrophils % 57.7 %; Nucleated Red Blood Cells % 0 %; Platelet Count 201 10^3/cmm (130-400); Red Cell Distribution Width 11.7 % (12.1-15.1); White Blood Count 5.4 10^3/uL (4.0-10.0)
[2021-12-11 15:49] LABS: Alanine Aminotransferase 23 U/L (0-41); Alkaline Phosphatase 66 IU/L (40-130); Anion Gap 14.8 (5-19); Aspartate Amino Transferase 20 U/L (0-40); Blood Urea Nitrogen 12 mg/dL (8-23); Calcium 9.9 mg/dL (8.5-10.5); Carbon Dioxide 25 mmol/L (22-29); Chloride 104 mmol/L (98-107); Ferritin 782 ng/mL (30-400); Globulin 2.9 g/dL (1.3-4.6); Glucose 142 mg/dL (65-115); Iron 189 ug/dL (59-158); Osmolality Calculated 292 mOsm/kg (285-295); Potassium 3.8 mmol/L (3.5-5.1); Sodium 140 mmol/L (136-145); Total Bilirubin 1.3 mg/dL (0.15-1.2); Total Protein 6.9 g/dL (6.6-8.7)
[2021-12-11 16:15] LABS: Unsaturated Iron Binding < 17 ug/dL (112-347)
--- NOTE | 2021-12-11 17:04 | ONC CON_ITS ---
Dr. Martinez New Patient Note Patient: Aquilino Roger Unit #: [id number]: [id number] Dicatated By: Davis Martinez M.D.Date of Visit: Dec 11, 2021 Onc MED New Patient/Consult Referring Physician: Lupe Bullard History of Present Illness: Mr. Aquilino Roger, is a 76-year-old gentleman found to have elevated ferritin level during his routine follow-up visit with his PMD on August 11, 2021, at that time, his CBC showed white blood count 6 hemoglobin 15.7 hematocrit 46.6, platelets 208,000 with a normal differential and serum ferritin level was 606 ng/mL, normal being 22-275. As per patient, this time he informed his PMD regarding his brothers blood disorder requiring frequent phlebotomies as his ferritin level was more than 2000. So his PMD decided to check his ferritin too. Patient denies any jaundice, denies any chest pain or palpitation denies any fever chills, denies any night sweats, denies any weight loss, denies any peripheral lymphadenopathy. Patient has history of left knee surgery, may have some arthritis involving left knee, sometime complaining of discomfort in bilateral knuckles but never been diagnosed with rheumatoid arthritis or osteoarthritis. Patient also has history of elevated PSA level gone as high as up to 13, as per patient he underwent prostate biopsy on multiple occasion but never been diagnosed with prostate cancer, he was treated with finasteride with that his PSA gone down to 5, now being followed by Dr. Padilla. Patient denies smoking or alcohol abuse but drinks occasionally Past Medical History: Mr. Roger's medical history consists of colon polyps, elevated PSA, hyperlipidemia, hypertension, and vericose veins. Past Surgical History: There is no documented surgical history. Medications: Atorvastatin Calcium 1 Tablet (of 20 mg) Oral at bedtime, Finasteride (5 mg) Tablet Oral daily, Furosemide 1 Tablet (of 20 mg) Oral daily, Lisinopril 1 Tablet (of 40 mg) Oral daily, Tamsulosin HCl 1 Tablet (of 0.4 mg) Capsule Oral at bedtime Allergies: No Known Allergies. Social History: Mr. Roger is . Mr. Roger no longer smokes. He drinks occasionally. Family History: There is no documented family history. Review Of Symptoms: Review of Systems is not available for this patient. Vital Signs: Performed on Dec 11, 2021 16:35: 4, 0, 29.67, 2.21 sq.m, 72 in, 96 %, 65 /min, 18 /min, 147/76 mm(hg) (HIGH), 97.6 F (LOW), and 218.8 lbs (HIGH). Performance Status: 0 - Fully active, able to carry on all predisease activities without restrictions. (ECOG) Physical Examination: ENMT - No mouth sores, no thrush, no jaundice, no cervical lymphadenopathy, Respiratory - Lungs are clear to auscultation, Cardiovascular - Regular rate and rhythm of heart, Abdomen - Soft, bowel sounds present, Extremities - No visible edema, but old healing ecchymosis. Lab/Imaging: Most recent lab results are not available for this patient. Impression: Elevated ferritin level, etiology could be reactive to chronic inflammation or infection, considering history of hemochromatosis and his only sibling e.g. brother, underlying hemochromatosis cannot be ruled out Hypertension, Elevated PSA status post prostate biopsy multiple times, negative, now being treated with finasteride, followed by Dr. Padilla Elder brother with history of hemochromatosis, treated with phlebotomies Plan: Discussed with patient regarding his labs white blood count 5.4 hemoglobin 15.2 hematocrit 44 platelets 201,000 CMP within normal limits except glucose 142 and bilirubin 1.3 ferritin 782, iron 189 iron saturation 91% TIBC 205 Discussed with patient regarding his lab work-up which shows progressive ferritin level, etiology could be due to chronic inflammation/infection or considering history of hemochromatosis and his only sibling e.g. elder brother, possibility of underlying hemochromatosis cannot be ruled out. At this point, will consider C-reactive protein level to rule out underlying inflammation and also consider screening for hemochromatosis. Mildly elevated bilirubin, etiology unclear, will monitor, if there is a worsening, will consider right upper quadrant sonogram. Patient return to clinic in 2 weeks with ferritin level and CMP Signed By: Davis Martinez M.D. <<Signature on File>>
[2021-12-11 17:21] LABS: CRP High Sensitivity Cardiac < 0.150 mg/dL (0.0-0.3)
== END 2021-12-11 14:28 | disposition home or self-care (01) ==
LOC: ONCMED 14:30
PROVIDERS: PCP Physician Assistant Medical; Visit Provider Internal Medicine Hematology & Oncology
DX: R79.89 Other specified abnormal findings of blood chemistry (principal); E78.5 Hyperlipidemia, unspecified; I10 Essential (primary) hypertension; R97.20 Elevated prostate specific antigen [PSA]; I83.93 Asymptomatic varicose veins of bilateral lower extremities; Z79.899 Other long term (current) drug therapy
CPT/HCPCS: 36415; 80053; 81256; 82728; 83540; 83550; 85025; 86141; 99204

== ENCOUNTER 2021-12-25 09:43 | Outpatient (CLI) | payer OTHER, SELFPAY ==
[2021-12-25 10:17] LABS: Basophils % 0.8 %; Eosinophils # 0.1 10^3/uL (0.0-0.8); Eosinophils % 3.1 %; Hematocrit 45.4 % (42.0-52.0); Hemoglobin 15.6 g/dL (11.7-16.6); Lymphocytes # 1.6 10^3/uL (0.8-4.8); Mean Corpuscular HGB Conc 34.4 g/dL (30.0-36.0); Mean Corpuscular Hemoglobin 33.3 pg (28.0-34.0); Mean Corpuscular Volume 96.8 fl (80-94); Mean Platelet Volume 10.3 fL (7.4-10.4); Monocytes # 0.4 10^3/uL (0.2-0.9); Monocytes % 10.3 %; Neutrophils # 1.79 10^3/uL (1.8-7.7); Neutrophils % 45.8 %; Nucleated Red Blood Cells % 0 %; Platelet Count 179 10^3/cmm (130-400); Red Blood Count 4.69 10^6/uL (4.1-5.3); Red Cell Distribution Width 11.9 % (12.1-15.1); White Blood Count 3.9 10^3/uL (4.0-10.0)
[2021-12-25 10:39] LABS: Alanine Aminotransferase 23 U/L (0-41); Albumin Level 4.2 g/dL (3.5-5.2); Alkaline Phosphatase 64 IU/L (40-130); Aspartate Amino Transferase 24 U/L (0-40); Blood Urea Nitrogen 15 mg/dL (8-23); Calcium 9.9 mg/dL (8.5-10.5); Carbon Dioxide 26 mmol/L (22-29); Chloride 104 mmol/L (98-107); Ferritin 929 ng/mL (30-400); Globulin 2.6 g/dL (1.3-4.6); Glucose 83 mg/dL (65-115); Iron 191 ug/dL (59-158); Osmolality Calculated 288 mOsm/kg (285-295); Sodium 139 mmol/L (136-145); Total Protein 6.8 g/dL (6.6-8.7)
[2021-12-25 11:16] LABS: Percent Saturation 91.8 % (20-50); Total Iron Binding Capacity 208 mcg/dl; Unsaturated Iron Binding < 17 ug/dL (112-347)
--- NOTE | 2021-12-26 08:05 | ONC FU_ITS ---
Marissa Beal Progress Note Patient: Aquilino Roger Unit #: [id number]: [id number] Dicatated By: Marissa Beal N.P.Date of Visit:Dec 25, 2021 Onc MED Follow-up/Prog Note Chief Complaint: Elevated ferritin level History of Present Illness: Mr. Aquilino Roger, is a 76-year-old gentleman found to have elevated ferritin level during his routine follow-up visit with his PMD on August 11, 2021, at that time, his CBC showed white blood count 6 hemoglobin 15.7 hematocrit 46.6, platelets 208,000 with a normal differential and serum ferritin level was 606 ng/mL, normal being 22-275. As per patient, this time he informed his PMD regarding his brothers blood disorder requiring frequent phlebotomies as his ferritin level was more than 2000. So his PMD decided to check his ferritin too. Patient denies any jaundice, denies any chest pain or palpitation denies any fever chills, denies any night sweats, denies any weight loss, denies any peripheral lymphadenopathy. Patient has history of left knee surgery, may have some arthritis involving left knee, sometime complaining of discomfort in bilateral knuckles but never been diagnosed with rheumatoid arthritis or osteoarthritis. Patient also has history of elevated PSA level gone as high as up to 13, as per patient he underwent prostate biopsy on multiple occasion but never been diagnosed with prostate cancer, he was treated with finasteride with that his PSA gone down to 5, now being followed by Dr. Padilla. Patient denies smoking or alcohol abuse but drinks occasionally Patient presents today for follow-up. He has been newly diagnosed with hemochromatosis. He has a brother who also has phlebotomy dependent hemochromatosis. He states he is feeling well. He has very mild fatigue. His appetite has been good. He denies fever, chills, night sweats. No sinus drainage or sore throat. No shortness of breath, cough, chest pain no GI or problems. No joint or bone pain. No headaches or dizziness. Review Of Symptoms: See above. Past Medical History: Colon polyps Elevated PSA Hyperlipidemia Hypertension Vericose veins Past Surgical History: There is no documented surgical history. Allergies: No Known Allergies. Medications: Atorvastatin Calcium 1 Tablet (of 20 mg) Oral at bedtime Finasteride (5 mg) Tablet Oral daily Furosemide 1 Tablet (of 20 mg) Oral daily Lisinopril 1 Tablet (of 40 mg) Oral daily Melatonin 1 Tablet (of 5 mg) Oral at bedtime Tamsulosin HCl 1 Tablet (of 0.4 mg) Capsule Oral b.i.d. Family History: There is no documented family history. Social History: Mr. Roger is . Mr. Roger no longer smokes. He drinks occasionally. Physical Examination: Performed on Dec 25, 2021 11:22: Height - 72.00 in, Weight - 213.4 lbs (LOW), BSA - 2.19 sq.m, BMI - 28.94, Temperature - 98.3 F (LOW), Pulse - 62 /min, Respiration - 16 /min, BP - 158/80 mm(hg) (HIGH), O2 Sat - 98 %, Pain - 0, and Fatigue - 2. Performance Status: 0 - Fully active, able to carry on all predisease activities without restrictions. (ECOG) Constitutional Alert, cooperative, oriented. Mood and affect appropriate. Appears close to chronological age. Well nourished. Well developed. Head Normocephalic; no scars. Respiratory Lungs are clear to auscultation without rhonchi or wheezing. Cardiovascular Regular rate and rhythm of heart without murmurs, gallops or rubs. Abdomen Non-tender, non-distended, no masses, ascites or hepatosplenomegaly. Good bowel sounds. No guarding or rebound tenderness. Musculoskeletal No tenderness or swelling, normal range of motion without obvious weakness. Psychiatric Alert and oriented times three. Coherent speech. Verbalizes understanding of our discussions today. Laboratory: Test performed on Dec 25, 2021 10:09 Ferritin 929 ng/mL Iron 191 mcg/dL Sodium 139 mmol/L Iron Binding Capacity (TIBC) 208 mcg/dl Potassium 4.0 mmol/L % Iron Saturation 91.8 % Chloride 104 mmol/L CO2 26 mmol/L UIBC < 17 mcg/dL Anion Gap 13.0 BUN 15 mg/dL Creatinine 0.5 mg/dL Cr Clearance (Est) 177.46 mL/min Glucose 83 mg/dL Osmolality - Calculated 288 mOsm/kg Calcium 9.9 mg/dL Protein, Total 6.8 g/dL Albumin 4.2 g/dL Globulin 2.6 g/dL Bilirubin, Total 2.0 mg/dL ALT (SGPT) 23 U/L AST (SGOT) 24 U/L Alkaline Phosphatase 64 IU/L WBC 3.9 10 3/uL RBC 4.69 10 6/uL HGB 15.6 g/dL HCT 45.4 % MCV 96.8 fl MCH 33.3 pg MCHC 34.4 g/dL RDW 11.9 % Platelet Count 179 10 3/cmm MPV 10.3 fL Neutrophils 1.79 10 3/uL Lymphocytes 1.6 10 3/uL Monocytes 0.4 10 3/uL Eosinophils 0.1 10 3/uL Basophils 0.0 10 3/uL Neutrophil % 45.8 % Lymphocyte % 40.0 % Monocyte % 10.3 % Eosinophil % 3.1 % Basophils % 0.8 % NRBC % 0 % Impression: Elevated ferritin level, etiology could be reactive to chronic inflammation or infection, considering history of hemochromatosis and his only sibling e.g. brother, underlying hemochromatosis cannot be ruled out Hypertension, Elevated PSA status post prostate biopsy multiple times, negative, now being treated with finasteride, followed by Dr. Padilla Elder brother with history of hemochromatosis, treated with phlebotomies Plan: Labs were reviewed with the patient. WBC 3.9, hemoglobin 15.6, hematocrit 45.4, platelet count 179,000. He is iron studies are elevated with his iron at 191, iron saturation and 91.89 ferritin at 929 which is up from 782 at last visit. Hemochromatosis evaluation was performed and was positive for hemochromatosis. We will perform phlebotomy having 250 cc today. He will return to the clinic in 2 weeks for another phlebotomy as indicated. Mildly elevated bilirubin, etiology unclear, will monitor, if there is a worsening, will consider right upper quadrant sonogram. Patient to return to clinic in 2 weeks with CBC, CMP and iron studies. Signed By: Marissa Beal N.P. <<Signature on File>>
== END 2021-12-25 09:44 | disposition home or self-care (01) ==
PROVIDERS: PCP Physician Assistant Medical; Visit Provider Internal Medicine Hematology & Oncology
DX: E83.119 Hemochromatosis, unspecified (principal); R79.89 Other specified abnormal findings of blood chemistry; I10 Essential (primary) hypertension; E78.5 Hyperlipidemia, unspecified; I83.93 Asymptomatic varicose veins of bilateral lower extremities; Z79.899 Other long term (current) drug therapy
CPT/HCPCS: 36415; 80053; 82728; 83540; 83550; 85025; 99195; 99214

== ENCOUNTER 2022-01-08 10:25 | Outpatient (CLI) | payer OTHER, SELFPAY ==
[2022-01-08 12:07] LABS: Lactate Dehydrogenase 223 U/L (135-225); Total Bilirubin 1.2 mg/dL (0.15-1.2)
--- NOTE | 2022-01-09 12:13 | ONC FU_ITS ---
Dr. Martinez follow up note Patient: Aquilino Roger Unit #: [id number]: [id number] Dicatated By: Davis Martinez M.D.Date of Visit:Jan 08, 2022 Onc Med Follow-up/Prog Note History of Present Illness: Mr. Aquilino Roger, is a 76-year-old gentleman found to have elevated ferritin level during his routine follow-up visit with his PMD on August 11, 2021, at that time, his CBC showed white blood count 6 hemoglobin 15.7 hematocrit 46.6, platelets 208,000 with a normal differential and serum ferritin level was 606 ng/mL, normal being 22-275. As per patient, this time he informed his PMD regarding his brothers blood disorder requiring frequent phlebotomies as his ferritin level was more than 2000. So his PMD decided to check his ferritin too. Patient denies any jaundice, denies any chest pain or palpitation denies any fever chills, denies any night sweats, denies any weight loss, denies any peripheral lymphadenopathy. Patient has history of left knee surgery, may have some arthritis involving left knee, sometime complaining of discomfort in bilateral knuckles but never been diagnosed with rheumatoid arthritis or osteoarthritis. 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 Padilla. Patient denies smoking or alcohol abuse but drinks occasionally Came for follow-up, denies any specific complaints, no fever chills, no nausea or vomiting, no diarrhea constipation, tolerating phlebotomies well, his molecular testing for hemochromatosis came back positive. Medications: Aspirin 1 Tablet (of 81 mg) Tablet, chewable Oral daily, Atorvastatin Calcium 1 Tablet (of 20 mg) Oral at bedtime, Finasteride (5 mg) Tablet Oral daily, Furosemide 1 Tablet (of 20 mg) Oral daily, Lisinopril 1 Tablet (of 40 mg) Oral daily, Melatonin 1 Tablet (of 5 mg) Oral at bedtime, Tamsulosin HCl 1 Tablet (of 0.4 mg) Capsule Oral b.i.d. Allergies: No Known Allergies. Review of Systems: Review of Systems is not available for this patient. Vital Signs: Performed on Jan 08, 2022 13:22 Height - 72.00 in BP - 191/85 mm(hg) (HIGH) Performed on Jan 08, 2022 13:21 Height - 72.00 in Weight - 218.0 lbs (HIGH) BSA - 2.21 sq.m BMI - 29.57 Temperature - 97.4 F (LOW) Pulse - 73 /min Respiration - 18 /min BP - 181/95 mm(hg) (HIGH) O2 Sat - 99 % Pain - 0 Fatigue - 2 Performance Status: 0 - Fully active, able to carry on all predisease activities without restrictions. (ECOG) Physical Examination: ENMT - No mouth sores, no thrush, no jaundice, Respiratory - Lungs are clear to auscultation, Cardiovascular - Regular rate and rhythm of heart, Abdomen - Soft, bowel sounds present, Extremities - No visible edema. Lab/Imaging: Test performed on Jan 08, 2022 14:04 Bilirubin, Direct 0.30 mg/dL Bilirubin, Total 1.2 mg/dL Haptoglobin 114.0 mg/dL Test performed on Jan 05, 2022 09:09 Ferritin 462 ng/mL TIBC 232 mcg/dL Glucose 89 mg/dL Creatinine 0.68 mg/dL Cr Clearance (Est) 133.3000 mL/min BUN/Creatinine Ratio 21 Absolute Value Sodium 140 mmol/L Potassium 4.0 mmol/L Chloride 105 mmol/L CO2 26 mmol/L Calcium 9.6 mg/dL Protein, Total 6.3 g/dL Albumin 4.2 g/dL Globulin 2.1 g/dL A/G Ratio 2.0 Absolute Value Alkaline Phosphatase 55 International Units/L AST (SGOT) 18 International Units/L ALT (SGPT) 23 International Units/L WBC 5.6 10^9/L RBC 4.72 10^12/L HGB 15.3 g/dL HCT 45.3 % MCV 96.0 fl MCH 32.4 pg MCHC 33.8 g/dL RDW 11.9 % Platelet Count 218 10^9/L MPV 11.0 fL Lymphocytes 1.8256 10^9/L Monocytes 0.4648 10^9/L Eosinophils 0.1904 10^9/L Basophils 0.028 10^9/L Test performed on Dec 25, 2021 10:09 Iron 191 mcg/dL % Iron Saturation 91.8 % UIBC < 17 mcg/dL Anion Gap 13.0 BUN 15 mg/dL Osmolality - Calculated 288 mOsm/kg Neutrophils 1.79 10 3/uL Neutrophil % 45.8 % Lymphocyte % 40.0 % Monocyte % 10.3 % Eosinophil % 3.1 % Basophils % 0.8 % NRBC % 0 % Impression: Hereditary hemochromatosis confirmed with hemochromatosis screening test done on December 11, 2021 which 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 Patient was advised, now hemochromatosis is confirmed so goal is to keep his serum ferritin level less than 50 ng per mL to minimize the risk of iron deposition in vital organs, we will consider weekly phlebotomy with 250 cc while maintaining his hemoglobin above 12 g and hematocrit above 36 till ferritin improves down to less than 50 ng/mL. Patient was advised to avoid vitamin C or citrus food or food especially steak or green vegetable or any other rich source of iron. He will continue weekly phlebotomy with 250 cc in effort to bring his ferritin level to less than 50 ng/mL while maintaining his hemoglobin more than 12 g and hematocrit more than 36. Return to clinic in 1 month with CBC and ferritin level As far as mildly elevated bilirubin is concerned, etiology unclear could be underlying hepatic disorder or hemolysis, will consider serum haptoglobin level, LDH, Corina test direct and indirect, and right upper quadrant sonogram and if work-up remains inconclusive, may refer him to hepatology for evaluation. Signed By: Davis Martinez M.D. <<Signature on File>>
== END 2022-01-08 10:26 | disposition home or self-care (01) ==
PROVIDERS: PCP Physician Assistant Medical; Visit Provider Internal Medicine Hematology & Oncology
DX: E83.110 Hereditary hemochromatosis (principal); I10 Essential (primary) hypertension; R17 Unspecified jaundice; Z79.899 Other long term (current) drug therapy
CPT/HCPCS: 82247; 82248; 83010; 83615; 99195; 99214

== ENCOUNTER 2022-01-19 09:16 | Outpatient (CLI) | payer OTHER, SELFPAY ==
--- NOTE | 2022-01-19 09:21 | US_ITS ---
WS: [id number] RIGHT UPPER QUADRANT ULTRASOUND HISTORY: RUQ ABD PAIN COMPARISON: None available. Liver: 15.3 cm in length. Liver is normal size. Hepatic cyst towards the RIGHT diaphragmatic surface measures 1.6 x 1.6 x 2.2 cm. Otherwise mild hepatic steatosis. Surface of the liver is very slightly nodular. No mass or bile duct dilatation. Portal Vein: Normal hepatopetal flow with monophasic waveform. Gallbladder: Normally distended gallbladder with no stones or wall thickening. CBD: 0.5 cm Pancreas: Completely obscured by bowel gas. Right kidney: 12.0 cm in length. Normal size kidney. There is a hypoechoic slightly lobulated mass mi d kidney measuring 2.3 x 1.8 x 2.1 cm. Not seen on the prior unenhanced renal CT. This is not a simpl e cyst as by ultrasound. No through-transmission in the margins are slightly lobulated. Aorta and IVC: Atherosclerosis aorta. No ascites. US/US abdomen limited [id number] IMPRESSION: 1. Stable hepatic cyst. 2. Mild hepatic steatosis. 3. No cholelithiasis. 4. Indeterminate mid RIGHT renal mass measuring 2.3 x 1.8 x 2.1 cm. Recommend follow-up MRI kidneys with and without contrast. If renal function studies do n ot permit contrast injection recommend follow-up ultrasound in 3-4 months.
== END 2022-01-19 09:17 | disposition home or self-care (01) ==
LOC: RAD 09:18 → ONCMED 10:17
PROVIDERS: PCP Physician Assistant Medical; Visit Provider Internal Medicine Hematology & Oncology
DX: R10.11 Right upper quadrant pain (principal); K76.0 Fatty (change of) liver, not elsewhere classified; K76.89 Other specified diseases of liver; N28.89 Other specified disorders of kidney and ureter; E83.110 Hereditary hemochromatosis; I10 Essential (primary) hypertension; R17 Unspecified jaundice; Z79.899 Other long term (current) drug therapy
CPT/HCPCS: 76705; 99195

== ENCOUNTER 2022-02-05 11:19 | Outpatient (CLI) | payer OTHER, SELFPAY ==
[2022-02-05] MEDS: sodium chloride 0.9% 250 ML 999 ML IV (14:31)
--- NOTE | 2022-02-06 11:17 | ONC FU_ITS ---
Marissa Beal Progress Note Patient: Aquilino Roger Unit #: [id number]: 1945 Dicatated By: Marissa Beal N.P.Date of Visit:Feb 05, 2022 Onc MED Follow-up/Prog Note Chief Complaint: Elevated ferritin level History of Present Illness: Mr. Aquilino Roger, is a 76-year-old gentleman found to have elevated ferritin level during his routine follow-up visit with his PMD on August 11, 2021, at that time, his CBC showed white blood count 6 hemoglobin 15.7 hematocrit 46.6, platelets 208,000 with a normal differential and serum ferritin level was 606 ng/mL, normal being 22-275. As per patient, this time he informed his PMD regarding his brothers blood disorder requiring frequent phlebotomies as his ferritin level was more than 2000. So his PMD decided to check his ferritin too. Patient denies any jaundice, denies any chest pain or palpitation denies any fever chills, denies any night sweats, denies any weight loss, denies any peripheral lymphadenopathy. Patient has history of left knee surgery, may have some arthritis involving left knee, sometime complaining of discomfort in bilateral knuckles but never been diagnosed with rheumatoid arthritis or osteoarthritis. 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 Padilla. Patient denies smoking or alcohol abuse but drinks occasionally Patient presents today for follow-up. He states he has been feeling well. He denies weakness or fatigue. His appetite has been good. He denies fever, chills, night sweats. No sinus drainage or mouth sores. No shortness of breath, cough, chest pain. No GI or problems. No joint or muscle pain. No headaches or dizziness. Review Of Symptoms: See above. Past Medical History: Colon polyps Elevated PSA Hyperlipidemia Hypertension Vericose veins Past Surgical History: There is no documented surgical history. Allergies: No Known Allergies. Medications: Aspirin 1 Tablet (of 81 mg) Tablet, chewable Oral daily Atorvastatin Calcium 1 Tablet (of 20 mg) Oral at bedtime Finasteride (5 mg) Tablet Oral daily Furosemide 1 Tablet (of 20 mg) Oral daily Lisinopril 1 Tablet (of 40 mg) Oral daily Melatonin 1 Tablet (of 5 mg) Oral at bedtime Family History: There is no documented family history. Social History: Mr. Roger is . Mr. Roger no longer smokes. He drinks occasionally. Physical Examination: Performed on Feb 05, 2022 13:38: Height - 72.00 in, BP - 194/85 mm(hg) (HIGH), Performed on Feb 05, 2022 13:38: Height - 72.00 in, Weight - 214.2 lbs (LOW), BSA - 2.19 sq.m, BMI - 29.05, Temperature - 97.5 F (LOW), Pulse - 68 /min, Respiration - 18 /min, BP - 195/90 mm(hg) (HIGH), O2 Sat - 99 %, Pain - 0, and Fatigue - 2. Performance Status: 0 - Fully active, able to carry on all predisease activities without restrictions. (ECOG) Constitutional Alert, cooperative, oriented. Mood and affect appropriate. Appears close to chronological age. Well nourished. Well developed. Head Normocephalic; no scars. Respiratory Lungs are clear to auscultation without rhonchi or wheezing. Cardiovascular Regular rate and rhythm of heart without murmurs, gallops or rubs. Abdomen Non-tender, non-distended, no masses, ascites or hepatosplenomegaly. Good bowel sounds. No guarding or rebound tenderness. Extremities No visible deformities, no cyanosis, clubbing or edema. Pulses 3+ and equal bilaterally. Musculoskeletal No tenderness or swelling, normal range of motion without obvious weakness. Psychiatric Alert and oriented times three. Coherent speech. Verbalizes understanding of our discussions today. Laboratory: Test performed on Feb 05, 2022 11:25 Manual Diff Cancelled via OM: Patient Refused Test performed on Feb 02, 2022 12:12 Ferritin 536 ng/mL Test performed on Feb 02, 2022 12:08 Eosinophils 0.1536 10^9/L Basophils 0.0288 10^9/L Test performed on Jan 08, 2022 14:04 Bilirubin, Direct 0.30 mg/dL Bilirubin, Total 1.2 mg/dL Haptoglobin 114.0 mg/dL Test performed on Jan 05, 2022 09:09 TIBC 232 mcg/dL Glucose 89 mg/dL Creatinine 0.68 mg/dL Cr Clearance (Est) 133.3000 mL/min BUN/Creatinine Ratio 21 Absolute Value Sodium 140 mmol/L Potassium 4.0 mmol/L Chloride 105 mmol/L CO2 26 mmol/L Calcium 9.6 mg/dL Protein, Total 6.3 g/dL Albumin 4.2 g/dL Globulin 2.1 g/dL A/G Ratio 2.0 Absolute Value Alkaline Phosphatase 55 International Units/L AST (SGOT) 18 International Units/L ALT (SGPT) 23 International Units/L Test performed on Dec 25, 2021 10:09 Iron 191 mcg/dL % Iron Saturation 91.8 % UIBC < 17 mcg/dL Anion Gap 13.0 BUN 15 mg/dL Osmolality - Calculated 288 mOsm/kg Neutrophils 1.79 10 3/uL Neutrophil % 45.8 % Eosinophil % 3.1 % Basophils % 0.8 % NRBC % 0 % Impression: Hereditary hemochromatosis confirmed with hemochromatosis screening test done on December 11, 2021 which 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 Patient was advised, now hemochromatosis is confirmed so goal is to keep his serum ferritin level less than 50 ng per mL to minimize the risk of iron deposition in vital organs, we will consider weekly phlebotomy with 250 cc while maintaining his hemoglobin above 12 g and hematocrit above 36 till ferritin improves down to less than 50 ng/mL. Patient was advised to avoid vitamin C or citrus food or food especially steak or green vegetable or any other rich source of iron. He will continue weekly phlebotomy with 250 cc in effort to bring his ferritin level to less than 50 ng/mL while maintaining his hemoglobin more than 12 g and hematocrit more than 36. Labs were reviewed with patient. His WBC is 4.8, hemoglobin 15.4, hematocrit 44.9, and his ferritin level is at 536. Due to elevated bilirubin at last visit, haptoglobin was checked and was within normal limits at 114. Total bilirubin was 1.2, direct bilirubin 0.3, indirect bilirubin 0.90 and LDH was within normal range at 223. And ultrasound of the right upper quadrant was performed on 01/19/2022 which indicated stable hepatic cyst, mild hepatic steatosis, and no cholelithiasis. There was an indeterminate mid right renal mass measuring 2.3 x 1.8 x 2.1 cm it was recommended to have a follow-up MRI of the kidneys with and without contrast. That will be ordered today. Patient is also followed up with collar fuser Dr. Bolivar in the past but it has been several years. Patient states it was due to protein being in the urine. We will place a new referral for him to be reestablished with Dr. Bolivar. Patient will receive a phlebotomy today and follow-up in 2 weeks with labs. Signed By: Marissa Beal N.P. <<Signature on File>>
== END 2022-02-05 11:20 | disposition home or self-care (01) ==
PROVIDERS: PCP Physician Assistant Medical; Visit Provider Nurse Practitioner Family
DX: E83.110 Hereditary hemochromatosis (principal); I10 Essential (primary) hypertension; R97.20 Elevated prostate specific antigen [PSA]; E80.7 Disorder of bilirubin metabolism, unspecified; K76.89 Other specified diseases of liver; K76.0 Fatty (change of) liver, not elsewhere classified; Z79.899 Other long term (current) drug therapy
CPT/HCPCS: 99195; 99214; J7050

== ENCOUNTER 2022-02-19 11:37 | Outpatient (CLI) | payer OTHER, SELFPAY ==
[2022-02-19 12:54] LABS: Basophils % 0.7 %; Eosinophils # 0.1 10^3/uL (0.0-0.8); Eosinophils % 3.1 %; Hematocrit 42.8 % (42.0-52.0); Hemoglobin 14.6 g/dL (11.7-16.6); Lymphocytes # 1.3 10^3/uL (0.8-4.8); Lymphocytes % 31.5 %; Mean Corpuscular HGB Conc 34.1 g/dL (30.0-36.0); Mean Corpuscular Hemoglobin 33.4 pg (28.0-34.0); Mean Corpuscular Volume 97.9 fl (80-94); Mean Platelet Volume 10.4 fL (7.4-10.4); Monocytes # 0.4 10^3/uL (0.2-0.9); Monocytes % 8.5 %; Neutrophils # 2.38 10^3/uL (1.8-7.7); Nucleated Red Blood Cells % 0 %; Platelet Count 196 10^3/cmm (130-400); Red Blood Count 4.37 10^6/uL (4.1-5.3); Red Cell Distribution Width 12.1 % (12.1-15.1); White Blood Count 4.3 10^3/uL (4.0-10.0)
[2022-02-19 13:19] LABS: Ferritin 626 ng/mL (30-400)
== END 2022-02-19 11:38 | disposition home or self-care (01) ==
LOC: LAB 11:40
PROVIDERS: Internal Medicine Hematology & Oncology; PCP Physician Assistant Medical; Visit Provider Urology
DX: R79.9 Abnormal finding of blood chemistry, unspecified (principal); N40.1 Benign prostatic hyperplasia with lower urinary tract symptoms; N13.8 Other obstructive and reflux uropathy; N20.0 Calculus of kidney; R97.20 Elevated prostate specific antigen [PSA]
CPT/HCPCS: 36415; 82728; 84153; 85025; 99213

== ENCOUNTER 2022-02-23 10:36 | Oncology outpatient (recurring) (ONCR) | payer OTHER, SELFPAY | END 2022-03-10 23:59 | disposition home or self-care (01) | PROVIDERS: PCP Physician Assistant Medical; Visit Provider Nurse Practitioner Family | DX: E83.110 Hereditary hemochromatosis (principal); Z79.899 Other long term (current) drug therapy | CPT/HCPCS: 99195; 99214; 99999 ==

== ENCOUNTER 2022-04-09 14:30 | Oncology outpatient (recurring) (ONCR) | payer OTHER, SELFPAY ==
--- NOTE | 2022-03-12 07:15 | MR_ITS ---
WS: [id number] MRI ABDOMEN WITHOUT AND WITH GADOLINIUM ENHANCEMENT. INDICATION: TECHNIQUE: Coronal single shot, axial single shot, dual Echo axial imaging, [id number] renal janeth sen, axial T2 fat sat, axial T1 and coronal T1 postgadolinium imaging. FINDINGS: Comparison ultrasound January 19, 2022. Incidental hepatic cyst measuring 1.9 cm in the dome of the liver. Gallbladder is normal. Normal comm on bile duct. Adrenal glands are normal. A few tiny bilateral simple appearing renal cortical cysts the largest gege suring 7 mm. No hydronephrosis in either kidney. Normal renal parenchymal enhancement. No evidence of solid mass or lesion in either kidney. No suspicious renal lesions to correspond to the ultrasound f indings. No evidence of renal artery stenosis. SMA is patent. Normal caliber abdominal aorta. Tiny 4 mm cyst i n the tail the pancreas likely incidental. MR/MR abdomen wo/w con* [id number] IMPRESSION: 1. No evidence of solid renal mass or suspicious lesion. Findings on ultrasoun d likely represents an incidental dromedary hump 2. A few incidental tiny renal cortical cysts. 3. Incidental hepatic cyst in the dome of the liver measuring 1.9 CM. 4. Normal caliber abdominal aorta. 5. No significant renal artery stenosis.
[2022-03-12] MEDS: gadobenate dimeglumine 20 mL vial IV (11:04)
[2022-03-12 11:24] VITALS: BP 183/93; PULSE 63; RESP 18; TEMP 35.9; O2SAT 97
[2022-03-26 14:37] LABS: Basophils # 0.1 10^3/uL (0.0-0.1); Basophils % 1.1 %; Eosinophils # 0.2 10^3/uL (0.0-0.8); Eosinophils % 3.5 %; Hematocrit 42.8 % (42.0-52.0); Hemoglobin 15.1 g/dL (11.7-16.6); Lymphocytes # 1.9 10^3/uL (0.8-4.8); Lymphocytes % 33.1 %; Mean Corpuscular HGB Conc 35.3 g/dL (30.0-36.0); Mean Corpuscular Volume 93.4 fl (80-94); Mean Platelet Volume 9.8 fL (7.4-10.4); Monocytes # 0.4 10^3/uL (0.2-0.9); Monocytes % 6.5 %; Neutrophils # 3.16 10^3/uL (1.8-7.7); Neutrophils % 55.6 %; Nucleated Red Blood Cells % 0 %; Platelet Count 209 10^3/cmm (130-400); Red Blood Count 4.58 10^6/uL (4.1-5.3); Red Cell Distribution Width 11.5 % (12.1-15.1); White Blood Count 5.7 10^3/uL (4.0-10.0)
[2022-03-26 15:03] VITALS: BP 154/61; PULSE 74; RESP 16; TEMP 36.6; O2SAT 96
[2022-03-26 15:14] LABS: Ferritin 662 ng/mL (30-400)
[2022-04-09 14:37] VITALS: BP 145/82; PULSE 66; RESP 18; TEMP 35.6; O2SAT 97
== END 2022-04-09 23:59 | disposition home or self-care (01) ==
PROVIDERS: Internal Medicine Hematology & Oncology; PCP Family Medicine; Visit Provider Nurse Practitioner Family
DX: R79.9 Abnormal finding of blood chemistry, unspecified (principal)
CPT/HCPCS: 36415; 74183; 82728; 85025; 99195; 99214; A9577

== ENCOUNTER 2022-05-07 09:00 | Oncology outpatient (recurring) (ONCR) | payer OTHER, SELFPAY ==
[2022-04-23 15:17] VITALS: BP 154/87; PULSE 69; RESP 16; TEMP 36.5; O2SAT 97
[2022-05-07 09:40] VITALS: BP 159/76; PULSE 54; RESP 16; TEMP 36.2; O2SAT 100
== END 2022-05-10 23:59 | disposition home or self-care (01) ==
PROVIDERS: PCP Family Medicine; Visit Provider Nurse Practitioner Family
DX: E83.119 Hemochromatosis, unspecified (principal); Z79.899 Other long term (current) drug therapy
CPT/HCPCS: 99195; 99214

== ENCOUNTER 2022-06-04 11:00 | Oncology outpatient (recurring) (ONCR) | payer OTHER, SELFPAY ==
[2022-05-21 14:44] VITALS: BP 161/85; PULSE 70; RESP 18; TEMP 36.6; O2SAT 98
[2022-06-04 13:47] VITALS: BP 147/91; PULSE 66; RESP 18; TEMP 36.3
== END 2022-06-10 23:59 | disposition home or self-care (01) ==
PROVIDERS: PCP Family Medicine; Visit Provider Nurse Practitioner Family
DX: E83.119 Hemochromatosis, unspecified (principal)
CPT/HCPCS: 99195; 99214

== ENCOUNTER 2022-07-09 13:30 | Oncology outpatient (recurring) (ONCR) | payer OTHER, SELFPAY ==
[2022-06-18 14:15] VITALS: BP 136/79; PULSE 63; RESP 18; TEMP 36.6; O2SAT 99
[2022-06-18] MEDS: sodium chloride 0.9% 250 ML IV ×2 (15:06→15:40)
[2022-06-18 15:45] VITALS: BP 141/80; PULSE 67; RESP 18; TEMP 36.6; O2SAT 99
[2022-07-09 13:45] VITALS: BP 159/74; PULSE 74; RESP 18; TEMP 37.1; O2SAT 98
--- NOTE | 2022-07-09 15:09 | PC.NURSE ---
Patient had lab drawn at [facility] yesterday with Dr Martinez reviewing results and requested to have 500ml removed for theraputic phlebotomy. #18 guage intracath needle inserted with the 500ml pulled with no issues of dizziness or pain at the site. He was instructed of the return visit. B/p146/58 pulse 85 temp 98 pulse ox 98 %.
== END 2022-07-10 23:59 | disposition home or self-care (01) ==
PROVIDERS: PCP Family Medicine; Visit Provider Internal Medicine Hematology & Oncology
DX: E83.119 Hemochromatosis, unspecified (principal); Z79.899 Other long term (current) drug therapy
CPT/HCPCS: 96365; 99195; 99214; J7050

== ENCOUNTER 2022-08-06 15:30 | Oncology outpatient (recurring) (ONCR) | payer OTHER, SELFPAY ==
[2022-07-23 14:33] VITALS: BP 142/88; PULSE 69; RESP 18; TEMP 36.3; O2SAT 98
[2022-08-06 16:35] VITALS: BP 191/84; PULSE 62; RESP 18; O2SAT 98
== END 2022-08-10 23:59 | disposition home or self-care (01) ==
PROVIDERS: PCP Family Medicine; Visit Provider Internal Medicine Hematology & Oncology
DX: E83.119 Hemochromatosis, unspecified (principal); Z79.899 Other long term (current) drug therapy; Z87.891 Personal history of nicotine dependence
CPT/HCPCS: 99195; 99213; 99214

== ENCOUNTER 2022-08-18 14:01 | Emergency (ER) | payer OTHER, SELFPAY ==
[2022-08-18 14:08] VITALS: BP 224/89; PULSE 65; RESP 16; TEMP 36.9; O2SAT 98
--- NOTE | 2022-08-18 14:23 | CTR_ITS ---
PROCEDURE INFORMATION: Exam: CT Lumbar Spine Without Contrast Exam date and time: 08/18/2022 2:35 PM Age: 77 years old Clinical indication: Low back pain; Additional info: Low back pain with left foot drop TECHNIQUE: Imaging protocol: Computed tomography of the lumbar spine without contrast. Radiation optimization: All CT scans at this facility use at least one of these dose optimization techniques: automated exposure control; mA and/or kV adjustment per patient size (includes targeted exams where dose is matched to clinical indication); or iterative reconstruction. COMPARISON: MR abdomen wo/w con* [id number] 03/12/2022 7:31 AM RADIATION DOSE METRICS: Total DLP (mGy-cm): 994.36 FINDINGS: Bones/joints: No acute fracture. Grade 1 anterolisthesis of L4 on L5. Degenerative disc disease at L4-L5 with vacuum disc phenomenon at this level. Cranially oriented disc protrusion or extrusion is also noted at this level. There is also disc bulge/protrusion at L3-L4 with at least moderate central canal stenosis at this level. This is seen to a lesser extent at L2-L3 and L5-S1. Moderate facet arthropathy noted at the mid and lower lumbar spine. Soft tissues: Unremarkable. CT/CT lumbar spine wo con* [id number] IMPRESSION: No acute findings. Degenerative changes of the lumbar spine as described in the body of the report.
--- NOTE | 2022-08-18 15:10 | ED_ITS ---
HPI - Back Pain/Injury General: Chief Complaint: Back Pain/Injury Stated Complaint: low back pain, Left leg weakness [facility] Time Seen by Provider: 08/18/22 14:25 History of Present Illness: Patient is a 77-year-old male comes to the ED with low back pain and left leg weakness. [facility] and sent here to the ED for further evaluation and imaging of back. Patient has been having low back pain for several weeks. He is also having some pain that radiates down left leg. His left leg has become more weak and he was having some episodes of numbness and tingling to left leg as well. He has trouble walking now and says he has left foot drop. Denies any bladder or bowel incontinence or pelvic anesthesia. He rates his pain currently mild. Pain worsens with movement or any ambulation. Associated symptoms: Deny abdominal pain, chills, dysuria, fatigue, fever(s), hematuria, nausea or vomiting Review of Systems Const: Denies: fever(s), chills or fatigue Eyes: Denies: change in vision or eye discomfort ENMT: Denies: throat pain, odynophagia, nasal discharge or nasal congestion Card: Denies: chest pain, palpitations, edema, swelling of feet/ankles, dyspnea on exertion or orthopnea Resp: Denies: dyspnea, productive cough or non-productive cough GI: Denies: abdominal pain, nausea, vomiting, diarrhea, constipation or hematochezia : Denies: flank pain, difficulty urinating, dysuria or hematuria Musc: Reports: back pain; Denies: neck pain or extremity swelling Skin/Breast: Denies: rash or new lesions Neuro: Reports: weakness in extremities (Weakness to left leg); Denies: headache(s) or numbness in extremities [facility] ED PFSH: Medical History BPH w urinary obs/LUTS Elevated PSA Hemochromatosis Renal calculus Surgical History H/O colonoscopy H/O prostate biopsy H/O varicose vein ligation and stripping Family History Father Cancer PROSTATE Lung disease tuberculosis Brother Cancer PROSTATE Mother Cancer COLON CANCER WITH METS Other Hypertension Denies family history of Diabetes CAD (coronary artery disease) Clotting disorder Dementia Hyperlipidemia Psychiatric illness Chronic kidney disease (CKD) Suicide Anesthesia complication Bleeding disorder Stroke Social History Smoking and tobacco status: former smoker (smoked x 25 years) Alcohol intake: current Alcohol intake frequency: 0-2 Drinks per Day Marital status: History of recent travel: No Physical Exam Const: COMMON NORMALS: no acute distress, patient oriented x3 and alert GENERAL APPEARANCE: cooperative and comfortable HENMT: COMMON NORMALS: normocephalic HEAD & SCALP: normocephalic MOUTH: Normal oral and palatal mucosa present THROAT: posterior oropharynx normal and uvula midline Neck/C-Spine: COMMON NORMALS: supple GENERAL: Yes normal visual inspection Resp: COMMON NORMALS: normal respiratory effort, No retractions, No use of accessory muscles and clear to auscultation bilaterally AUSCULTATION: clear to auscultation bilaterally Cardio: COMMON NORMALS: regular rate, regular rhythm, S1 normal heart sound present, S2 normal heart sound present, No gallops present (Cardio), No clicks present (Cardio), No murmurs present (Cardio) and Peripheral pulses 2+ throughout RATE: regular rate RHYTHM: regular rhythm HEART SOUNDS: S1 normal heart sound present and S2 normal heart sound present PERIPHERAL PULSES: Peripheral pulses 2+ throughout GI: COMMON NORMALS: Normal to inspection, nondistended, normoactive bowel sounds present, Soft to palpation, non-tender and no masses PALPATION: Yes Soft to palpation : COMMON NORMALS: Yes no CVA tenderness BLADDER/KIDNEY EXAM: Yes no CVA tenderness Back/Pelvis: COMMON NORMALS: no CVA tenderness LUMBAR SPINE/LOWER BACK: Yes lumbar spinal tenderness and Yes paraspinal muscle tenderness Extremity: COMMON NORMALS: normal to inspection Neuro: COMMON NORMALS: patient oriented x3 SENSORIUM/ORIENTATION: Yes alert GAIT: Yes Normal gait present Skin: GENERAL SKIN EXAM: dry skin Course Vital Signs: Vital signs: Vital Signs Temperature 98.5 F 08/18/22 14:08 Pulse Rate 65 08/18/22 14:08 Respiratory Rate 16 08/18/22 14:08 Blood Pressure 224/89 08/18/22 14:08 Pulse Oximetry 98 08/18/22 14:08 MDM - Back Pain/Injury Medical Decision Making Patient is a 77-year-old male comes to the ED with low back pain and left leg weakness. [facility] here to the ED for further evaluation and imaging of back. Patient has been having low back pain for several weeks. He is also having some pain that radiates down left leg. His left leg has become more weak and he was having some episodes of numbness and tingling to left leg as well. He has trouble walking now and says he has left foot drop. Denies any bladder or bowel incontinence or pelvic anesthesia. Vitals are stable. Lumbar CT spine shows no acute findings but showed some degenerative changes of the lumbar spine. I placed an order with case management for patient to be referred to Dr. Gregory for follow-up on lumbar radiculopathy. He was given a dose of a steroid and Toradol here in the ED. He was discharged home with a prescription for prednisone and told to continue taking his Tylenol for pain and previously prescribed muscle relaxer. Return to ED precautions given. Patient understood and agreed with plan. Labs Radiology Impressions Lumbar Spine CT 08/18/22 14:23 IMPRESSION: No acute findings. Degenerative changes of the lumbar spine as described in the body of the report. Discharge Plan Discharge Patient Disposition: Home Clinical Impression: Lumbar radiculopathy, Degenerative disc disease, lumbar Condition: Stable Prescriptions: New Medrol (Hima) 4 mg tablets,dose pack See Rx Instructions .ROUTE .COMPLEX Qty: 21 0RF Rx Instructions: orally per package directions No Action atorvastatin 20 mg tablet 20 mg PO BID@0700,2200 furosemide 40 mg tablet 20 mg PO DAILY Hold Instructions: Hold until you speak to your family doctor Rx Instructions: 20 mg PO daily; tamsulosin 0.4 mg capsule See Rx Instructions .ROUTE .COMPLEX Qty: 180 3RF Dose Instruction: TAKE 1 CAPSULE BY MOUTH TWICE DAILY Rx Instructions: TAKE 1 CAPSULE BY MOUTH TWICE DAILY finasteride 5 mg tablet See Rx Instructions .ROUTE .COMPLEX Qty: 90 3RF Dose Instruction: TAKE 1 TABLET BY MOUTH DAILY Rx Instructions: TAKE 1 TABLET BY MOUTH DAILY lisinopril 40 mg tablet 40 mg PO DAILY@0700 melatonin 1 mg Tablet 1 mg PO DAILY Discharge Orders: Discharge ED (Routine); Ordered 08/18/22 Ordered By: Rolando Rhoades Referrals: Dai Bassett MD [Primary Care Provider] - Discharge Diet: Regular Discharge Activity: Increase activity as tolerated Patient Instructions: Lumbar Radiculopathy (ED) Activity Restrictions/Additional Instructions: Follow-up with medical provider as directed. Case management should be contacting you in the next several days to set up an appointment with Dr. Gregory the orthospine specialist. Continue taking all home medications as previously prescribed. Return to the ER or your medical provider if condition worsens. Please read and understand discharge instructions. Thank you for choosing [facility] for your healthcare needs today. Tod chiang realize this is an emergency room and that we are providing you with a medical screening exam and this may not be complete and all inclusive of all the testing and or work up that you may need to determine your ailment or severity of your illness. It is very important that you follow up as instructed or that you return to the Emergency Department should you have concerns or if your condition changes or worsens in any way. Coding Level of Care Code ED Reed Or [employer] Rep[employer]r for Bert Fwkeith Exam Comprehensive
[2022-08-18] MEDS: ketorolac 60 mg/2 mL INJ IM (16:35)
[2022-08-18] MEDS: dexamethasone 10 mg/mL INJ IM (16:35)
--- NOTE | 2022-08-19 08:19 | DCPLANNER ---
Addendum entered by Prema Small 09/22/22 13:27: Patient had a follow up appointment scheduled with ortho - patient did attend appointment. Addendum entered by Prema Small 08/31/22 16:18: Patient has a follow up appointment scheduled for Thursday, September 01, 2022 at 3:[address] Gregory at ortho. Clinic will call patient with appointment information. Original Note: stable manager had message to schedule a follow up appointment for patient with ortho. stable manager sent patients information to the front office staff at ortho. Patients information will be printed and reviewed. Clinic will call patient with appointment information.
== END 2022-08-18 16:37 | disposition home or self-care (01) ==
PROVIDERS: Emergency Provider Physician Assistant; PCP Family Medicine
DX: M51.16 Intervertebral disc disorders with radiculopathy, lumbar region (principal); Z87.891 Personal history of nicotine dependence
CPT/HCPCS: 72131; 96372; 99285; J1100; J1885

== ENCOUNTER → 2022-09-01 15:32 | Outpatient (BNVA) | payer OTHER, SELFPAY | PROVIDERS: PCP Family Medicine; Referring Provider Physician Assistant; Visit Provider Orthopaedic Surgery | DX: M43.16 Spondylolisthesis, lumbar region (principal) | CPT/HCPCS: 72110; 99204 ==

== ENCOUNTER 2022-09-02 13:30 | Oncology outpatient (recurring) (ONCR) | payer OTHER, SELFPAY | END 2022-09-09 23:59 | disposition home or self-care (01) | PROVIDERS: PCP Family Medicine; Visit Provider Internal Medicine Hematology & Oncology | DX: E83.119 Hemochromatosis, unspecified (principal) | CPT/HCPCS: 36415; 99195 ==

== ENCOUNTER → 2022-09-21 09:39 | Outpatient (BNVA) | payer OTHER, SELFPAY | PROVIDERS: PCP Family Medicine; Visit Provider Anesthesiology Pain Medicine | DX: M43.16 Spondylolisthesis, lumbar region (principal); M48.062 Spinal stenosis, lumbar region with neurogenic claudication; M47.816 Spondylosis without myelopathy or radiculopathy, lumbar region; M79.604 Pain in right leg; M79.605 Pain in left leg | CPT/HCPCS: 99204 ==

== ENCOUNTER 2022-09-30 14:00 | Oncology outpatient (recurring) (ONCR) | payer OTHER, SELFPAY ==
[2022-09-16 13:29] VITALS: BP 208/82; PULSE 60; RESP 17; TEMP 36.6; O2SAT 98
[2022-09-16 13:54] VITALS: BP 190/89; PULSE 65
== END 2022-10-10 23:59 | disposition home or self-care (01) ==
PROVIDERS: PCP Family Medicine; Visit Provider Internal Medicine Hematology & Oncology
DX: E83.119 Hemochromatosis, unspecified (principal)
CPT/HCPCS: 99195

== ENCOUNTER 2022-10-07 10:28 | Outpatient (CLI) | payer OTHER, SELFPAY ==
--- NOTE | 2022-10-07 11:00 | MR_ITS ---
WS: [id number] MRI LUMBAR SPINE NONCONTRAST TECHNIQUE: Sagittal T1, T2 and STIR imaging. Axial T1 and T2 imaging. CLINICAL INFORMATION: low back pain/instability COMPARISON: CT August 18, 2022 FINDINGS: Mild lumbar curve. No acute compression. Slight anterolisthesis L4 on L5. Severe central canal stenos is L3-L4 due to disc bulging with facet arthropathy ligamentum flavum hypertrophy. Severe central can al stenosis L4-L5. L1-L2: Mild annular bulging. Narrowing of the RIGHT greater than LEFT subarticular recess. Mild RIGHT foraminal narrowing. Mild facet arthropathy. L2-L3: Mild annular bulging. Moderate central canal stenosis with slight impingement traversing L3 ne rve roots bilaterally. Moderate facet arthropathy. Foramen are patent. L3-L4: Mild annular bulging with severe central canal stenosis. Moderate facet arthropathy ligamentum flavum hypertrophy. Impingement mild LEFT greater than RIGHT foraminal narrowing. L4-L5: Severe central canal stenosis due to grade 1 anterolisthesis in combination with facet arthrop athy ligamentum flavum hypertrophy. Impingement traversing L5 nerve roots bilaterally. Advanced facet arthropathy. Mild LEFT foraminal narrowing. L5-S1: Mild annular bulging. Tiny shallow central protrusion with a small annular fissure. Slight imp ingement traversing S1 nerve roots bilaterally. Foramen are patent. Mild facet arthropathy. Heterogeneous bone marrow signal in the pelvis likely due to osteopenia. More focal low signal lesion in the LEFT ilium adjacent to the inferior SI joint measuring 1.6 cm. This is nonspecific. Bone scan could be used in further evaluation. Visualized pelvic bony structures: Normal. Paravertebral soft tissues: Normal. MR/MR lumbar spine wo con* [id number] IMPRESSION: 1. Mild lumbar curve. No acute compression. Grade 1 anterolisthesis L4 on L5. 2. Severe central canal stenosis L3-L4 and L4-L5 due to disc bulging in combin ation with facet arthropathy ligamentum flavum hypertrophy. 3. Moderate central canal stenosis L2-L3. 4. Tiny shallow central protrusion L5-S1 with a small annular fissure. Slight contact of the traversing S1 nerve roots. 5. Advanced facet arthropathy L4-L5. 6. Heterogeneous bone marrow signal in the pelvis and sacrum likely due to ost eopenia. More focal low signal lesion in the LEFT ilium measuring 1.6 cm. This is nonspecific and bone scan could be used in further evaluation of the bony st ructures.
== END 2022-10-07 10:29 | disposition home or self-care (01) ==
LOC: RAD 10:29
PROVIDERS: PCP Family Medicine; Visit Provider Orthopaedic Surgery
DX: M48.061 Spinal stenosis, lumbar region without neurogenic claudication (principal); M51.27 Other intervertebral disc displacement, lumbosacral region; M47.816 Spondylosis without myelopathy or radiculopathy, lumbar region
CPT/HCPCS: 72148

== ENCOUNTER → 2022-10-14 13:30 | Outpatient (BNVA) | payer OTHER, SELFPAY | PROVIDERS: PCP Family Medicine; Visit Provider Anesthesiology Pain Medicine | DX: M54.16 Radiculopathy, lumbar region (principal); M48.062 Spinal stenosis, lumbar region with neurogenic claudication | CPT/HCPCS: 64483; 64484; J1100; J3490 ==

== ENCOUNTER → 2022-10-20 09:52 | Outpatient (BNVA) | payer OTHER, SELFPAY | PROVIDERS: PCP Family Medicine; Visit Provider Orthopaedic Surgery | DX: M48.062 Spinal stenosis, lumbar region with neurogenic claudication (principal) | CPT/HCPCS: 99213 ==

== ENCOUNTER → 2022-10-28 13:14 | Outpatient (BNVA) | payer OTHER, SELFPAY | PROVIDERS: PCP Family Medicine; Visit Provider Anesthesiology Pain Medicine | DX: M54.16 Radiculopathy, lumbar region (principal); M48.062 Spinal stenosis, lumbar region with neurogenic claudication | CPT/HCPCS: 64483; 64484 ==

== ENCOUNTER 2022-10-28 14:00 | Oncology outpatient (recurring) (ONCR) | payer OTHER, SELFPAY | END 2022-11-10 23:59 | disposition home or self-care (01) | PROVIDERS: PCP Family Medicine; Visit Provider Internal Medicine Hematology & Oncology | DX: E83.119 Hemochromatosis, unspecified (principal); Z79.899 Other long term (current) drug therapy | CPT/HCPCS: 99214 ==

== ENCOUNTER 2022-12-23 14:30 | Oncology outpatient (recurring) (ONCR) | payer MEDICARE, OTHER, SELFPAY | END 2023-01-08 23:59 | disposition home or self-care (01) | PROVIDERS: PCP Family Medicine; Visit Provider Internal Medicine Hematology & Oncology | DX: E83.119 Hemochromatosis, unspecified (principal); Z79.899 Other long term (current) drug therapy; Z91.14 Patient's other noncompliance with medication regimen | CPT/HCPCS: 99214 ==

== ENCOUNTER 2023-01-12 09:11 | Outpatient (CLI) | payer OTHER, SELFPAY ==
--- NOTE | 2023-01-12 09:24 | NM_ITS ---
WS: [id number] NUCLEAR MEDICINE BONE SCAN Radiopharmaceutical: 24.9 Tc-99m MDP mCi IV Injection site: antecubital Postinjection imaging delay: 1 hr CLINICAL INFORMATION: R93.7 - Abnormal findings on diagnostic imaging of other ... COMPARISON: None. FINDINGS: Bone lesions: There are no osseous lesions suspicious for metastatic disease.Focal increased radiotra cer activity involving the RIGHT sternoclavicular joint is nonspecific but most likely degenerative o r inflammatory. Soft tissue contours: Normal. Kidneys: Normal. Other findings: Degenerative type uptake involving both AC joints and both knees. Degenerative uptake RIGHT ankle. NM/NM bone scan whole body* [id number] IMPRESSION: 1. No evidence of osseous metastatic disease. 2. Focal increased radiotracer activity involving the RIGHT sternoclavicular j oint is nonspecific but most likely degenerative or inflammatory. Recommend cor relation with RIGHT sternoclavicular pain. Metastatic disease difficult to enti rely exclude. Recommend 3-6 month interval follow-up bone scan 3. No other suspicious findings.
== END 2023-01-12 09:12 | disposition home or self-care (01) ==
LOC: RAD 09:12
PROVIDERS: PCP Family Medicine; Visit Provider Orthopaedic Surgery
DX: R93.7 Abnormal findings on diagnostic imaging of other parts of musculoskeletal system (principal)
CPT/HCPCS: 78306; A9561

== ENCOUNTER 2023-01-27 12:21 | Oncology outpatient (recurring) (ONCR) | payer OTHER, SELFPAY | END 2023-02-07 23:59 | disposition home or self-care (01) | LOC: ONCMED 12:22 | PROVIDERS: PCP Family Medicine; Visit Provider Nurse Practitioner Family | DX: E83.119 Hemochromatosis, unspecified (principal) | CPT/HCPCS: 99213 ==

== ENCOUNTER 2023-02-18 12:06 | Outpatient (CLI) | payer OTHER, MEDICARE, SELFPAY ==
--- NOTE | 2023-02-18 12:14 | XR_ITS ---
WS: [id number] KUB, AP view, 02/18/2023 Clinical Data: stone Comparison: KUB, 02/18/2021 Findings: No abnormal intraabdominal masses or calcifications are seen. There is no dilatated small bowel or ev idence of obstruction. There is a large amount of fecal material throughout the colon. There is moderate osteoarthritis of t he lumbar spine. XR/XR KUB [id number] Impression: Large amount of fecal material throughout the colon.
== END 2023-02-18 12:07 | disposition home or self-care (01) ==
LOC: RAD 12:11
PROVIDERS: PCP Family Medicine; Visit Provider Urology
DX: N20.0 Calculus of kidney (principal); N40.1 Benign prostatic hyperplasia with lower urinary tract symptoms; N13.8 Other obstructive and reflux uropathy; R97.20 Elevated prostate specific antigen [PSA]
CPT/HCPCS: 74018; 81003; 99213

== ENCOUNTER 2023-03-30 14:19 | Oncology outpatient (recurring) (ONCR) | payer OTHER, SELFPAY | END 2023-04-09 23:59 | disposition home or self-care (01) | LOC: ONCMED 14:20 | PROVIDERS: PCP Family Medicine; Visit Provider Nurse Practitioner Family | DX: E83.119 Hemochromatosis, unspecified (principal); Z79.899 Other long term (current) drug therapy | CPT/HCPCS: 99214 ==

== ENCOUNTER 2023-05-21 11:59 | Outpatient (CLI) | payer MEDICARE, SELFPAY ==
--- NOTE | 2023-05-21 12:11 | US_ITS ---
WS: [id number] URINARY BLADDER ULTRASOUND HISTORY: URINARY RETENTION COMPARISON: None available. Urinary bladder is overly distended. No intraluminal filling defect. No free fluid adjacent to the ur inary bladder. Prevoid volume: 870 ml. Postvoid volume: 866 ml. No significant decrease in volume on the post void imaging. Prostate gland is mildly enlarged and het erogeneous measuring 5.3 x 4.2 x 5.0 cm. IMPRESSION: 1. Golf distended urinary bladder. 2. Large amount of post void residual in the urinary bladder. Very little amount of urine was voided. 3. Prostate enlargement.
== END 2023-05-21 12:00 | disposition home or self-care (01) ==
PROVIDERS: PCP Family Medicine; Visit Provider Family Medicine
DX: R33.9 Retention of urine, unspecified (principal); N32.89 Other specified disorders of bladder; N40.0 Benign prostatic hyperplasia without lower urinary tract symptoms
CPT/HCPCS: 76857

== ENCOUNTER 2023-08-30 09:37 | Oncology outpatient (recurring) (ONCR) | payer OTHER, SELFPAY ==
[2023-08-30 10:21] LABS: Basophils % 0.4 %; Eosinophils # 0.2 10^3/uL (0.0-0.8); Eosinophils % 3.4 %; Hematocrit 42.1 % (37-53); Lymphocytes # 1.5 10^3/uL (0.8-4.8); Lymphocytes % 27.2 %; Mean Corpuscular HGB Conc 34.2 g/dL (30-55); Mean Corpuscular Hemoglobin 32.9 pg (27-33); Mean Corpuscular Volume 96.1 fl (82-101); Mean Platelet Volume 9.8 fL (7.4-10.4); Monocytes # 0.4 10^3/uL (0.2-0.9); Monocytes % 7.7 %; Neutrophils # 3.41 10^3/uL (1.8-7.7); Neutrophils % 61.1 %; Nucleated Red Blood Cells % 0 %; Platelet Count 204 10^3/cmm (157-399); Red Blood Count 4.38 10^6/uL (3.85-5.65); Red Cell Distribution Width 12.3 % (12.1-15.1); White Blood Count 5.58 10^3/uL (3.29-11.43)
[2023-08-30 10:47] LABS: Ferritin 239 ng/mL (30-400)
== END 2023-09-09 23:59 | disposition home or self-care (01) ==
PROVIDERS: Internal Medicine; PCP Family Medicine; Visit Provider Nurse Practitioner Family
DX: E83.119 Hemochromatosis, unspecified; R97.20 Elevated prostate specific antigen [PSA]
CPT/HCPCS: 36415; 82728; 84153; 85025; 99195; 99213

== ENCOUNTER 2023-11-17 13:19 | Oncology outpatient (recurring) (ONCR) | payer OTHER, SELFPAY ==
[2023-11-17 14:29] VITALS: BP 120/74; PULSE 82; RESP 18; TEMP 36.6; O2SAT 96
== END 2023-12-09 23:59 | disposition home or self-care (01) ==
PROVIDERS: PCP Family Medicine; Visit Provider Nurse Practitioner Family
DX: E83.119 Hemochromatosis, unspecified (principal); Z79.899 Other long term (current) drug therapy; Z87.891 Personal history of nicotine dependence; Z53.9 Procedure and treatment not carried out, unspecified reason
CPT/HCPCS: 99195; 99214

== ENCOUNTER 2024-02-14 10:43 | Oncology outpatient (recurring) (ONCR) | payer OTHER, SELFPAY | END 2024-03-10 23:59 | disposition home or self-care (01) | PROVIDERS: PCP Family Medicine; Visit Provider Nurse Practitioner Family | DX: E83.119 Hemochromatosis, unspecified (principal); Z79.899 Other long term (current) drug therapy; Z87.891 Personal history of nicotine dependence | CPT/HCPCS: 99213 ==

== ENCOUNTER 2024-02-17 17:45 | Emergency (ER) | payer OTHER, SELFPAY ==
[2024-02-17] VITALS (9 sets, daily range): BP systolic 112–142; BP diastolic 64–99; PULSE 67–80; RESP 18; TEMP 36.5; O2SAT 95–98
--- NOTE | 2024-02-17 17:50 | XRR_ITS ---
PROCEDURE INFORMATION: Exam: XR Left Tibia and Fibula Exam date and time: 02/17/2024 6:20 PM Age: 78 years old Clinical indication: Injury or trauma; Fall; Other: Unknown; Additional info: Fall, leg and knee pain TECHNIQUE: Imaging protocol: Radiologic exam of the left tibia and fibula. Views: 2 views. COMPARISON: [place] bone scan whole body* [id number] 01/12/2023 9:24 AM FINDINGS: Bones/joints: Proximal tibia diametaphyseal fractures. There is a curving fracture lucency anterior to posterior. Transverse fracture at the inferior margin of the tibial tuberosity with a vertical fracture along the attachment of the tuberosity with moderate severity displacement. Oblique orientation nondisplaced fracture lucency of the proximal fibula diametaphysis. Soft tissues: Mild diffuse soft tissue swelling. XR/XR tibia fibula LT 2V [id number] IMPRESSION: Acute left proximal tibia and fibular fractures.
--- NOTE | 2024-02-17 17:50 | XRR_ITS ---
PROCEDURE INFORMATION: Exam: XR Left Knee Exam date and time: 02/17/2024 6:20 PM Age: 78 years old Clinical indication: Injury or trauma; Fall; Other: Unknown; Additional info: Fall, leg and knee pain TECHNIQUE: Imaging protocol: Radiologic exam of the left knee. Views: 3 views. COMPARISON: CR XR knees AP WB w LT lmt ORTH 08/04/2021 2:28 PM FINDINGS: Bones/joints: Mildly comminuted predominantly transverse fracture lucencies cross the proximal tibial metaphysis. There is a transverse fracture and vertical fracture through the base of the tibial tuberosity which demonstrates moderate severity displacement. Oblique orientation relatively nondisplaced acute fracture lucency of the proximal fibula diametaphysis. Small knee joint effusion. Unremarkable knee joint alignment. Moderately narrowed joint spaces. Soft tissues: Soft tissue swelling. XR/XR knee LT 3V* [id number] IMPRESSION: Acute fractures proximal left tibia and fibula.
--- NOTE | 2024-02-17 17:57 | ED_ITS ---
HPI - Fall 2 General: Chief Complaint: Fall Stated Complaint: fall Time Seen by Provider: 02/17/24 17:47 History of Present Illness: 78-year-old man who presents to the [facility] by ambulance after he stepped through a bad board in his porch. His right leg went through the porch and he did not injure it however he did injure his left leg. He is having pain on the lateral proximal monzon and knee. He has some abrasions on his hand. No other injuries. No blood thinners. No head injury. No nausea or vomiting. No chest pain. No shortness of breath. No abdominal pain. He does not know when his last tetanus was. [facility] ED 2 PFSH: Medical History BPH w urinary obs/LUTS Elevated PSA Hemochromatosis Renal calculus Surgical History H/O colonoscopy H/O prostate biopsy H/O varicose vein ligation and stripping Family History Father Cancer PROSTATE Lung disease tuberculosis Brother Cancer PROSTATE Mother Cancer COLON CANCER WITH METS Other Hypertension Denies family history of Diabetes CAD (coronary artery disease) Clotting disorder Dementia Hyperlipidemia Psychiatric illness Chronic kidney disease (CKD) Suicide Anesthesia complication Bleeding disorder Stroke Social History Smoking and tobacco/nicotine status: former use of tobacco/nicotine Quit status (tobacco/nicotine): has quit using Year quit tobacco: Former quit date comment: 15 years total tobacco use Second hand smoke exposure: No Alcohol intake: current Alcohol intake frequency: 3 or more drinks per day Alcohol type: beer and wine Substance/Drug Use: never Marital status: Current occupational status: retired Physical Exam 2 Narrative: EXAM NARRATIVE: General: Alert, no acute distress. Skin: Warm, dry. Skin tears to the left hand. Head: Normocephalic, atraumatic. Neck: Supple, trachea midline. Eye: Extraocular movements are intact. Ears, nose, mouth and throat: mucosa moist. Cardiovascular: Regular, Normal peripheral perfusion. Respiratory: Lungs are clear to auscultation, respirations are non-labored, breath sounds are equal, Symmetrical chest wall expansion. Gastrointestinal: Soft, Nontender, Non distended, Normal bowel sounds. Musculoskeletal: Tenderness and swelling and possibly mild deformity proximal tibia and fibula. Neurovascularly intact. Neurological: Alert and oriented, No focal neurological deficit observed. Psychiatric: Cooperative, appropriate mood & affect. Course 2 Vital Signs: Vital signs: Vital Signs Temperature 97.7 F 02/17/24 17:56 Pulse Rate 80 02/17/24 21:00 Respiratory Rate 18 02/17/24 18:45 Blood Pressure 121/72 02/17/24 21:00 Pulse Oximetry 97 02/17/24 21:00 Oxygen Delivery Me thod Room Air 02/17/24 21:00 MDM - Fall Medical Decision Making Medical decision making: Differential diagnosis including but not limited to and based on the above HPI, review of systems and physical exam: Concern for fracture of the knee or proximal tibia. X-ray was ordered. This was positive so x-ray of the ankle and knee were done as well. Also a chest x-ray because this looks like it might be surgical. Also presurgical lab work and EKG were done. Orders placed to evaluate differential diagnosis based on the above differential, HPI and physical exam Lab Review: Laboratory results were reviewed and interpreted by myself the emergency room physician. Lab work is unremarkable. White count is 13. Hemoglobin is 14.9. BUN and creatinine are 22 and 1.1. Chest x-ray: No acute process. No infiltrate. No pneumothorax. No cardiomegaly. This was reviewed and interpreted by myself the ER physician. X-ray of the tibia and fibula: There is a proximal tibial fracture and fibular fracture seen. This does not appear to involve the joint. X-ray of the left knee: Again this fracture is seen. X-ray of the left ankle: No fractures. No dislocations. This was reviewed and interpreted by myself the emergency room physician. EKG: Time 1941 rate 71 atrial fibrillation with controlled rate versus sinus rhythm with sinus dysrhythmia. Previous EKGs were sinus rhythm with sinus arrhythmia and I think that is what is going on again today. Appears unchanged from previous, No ST-T changes, no ectopy, This was reviewed and interpreted by myself the ER physician at 1950 Consultation: I discussed the findings with Dr. Rhoades who is on-call for orthopedics. He recommends a CT scan and will consult further after that. I reviewed the patient's medical record. Reexamination: Lab Data 02/17/24 19:32 02/17/24 19:32 Laboratory Results WBC 13.10 10^3/uL (3.29-11.43) H 02/17/24 19:32 RBC 4.57 10^6/uL (3.85-5.65) 02/17/24 19:32 Hgb 14.90 g/dL (11.27-16.99) 02/17/24 19:32 Hct 42.9 % (37-53) 02/17/24 19:32 MCV 93.9 fl (82-101) 02/17/24 19: MCH 32.6 pg (27-33) 02/17/24 19: MCHC 34.7 g/dL (30-55) 02/17/24 19: RDW 11.7 % (12.1-15.1) L 02/17/24:32 Plt Count 181 10^3/cmm (157-399) 02/17/24:32 MPV 9.6 fL (7.4-10.4) 02/17/24 19:32 Neut % (Auto) 88.7 % 02/17/24 19: Lymph % (Auto) 6.1 % 02/17/24 19: Orange % (Auto) 4.5 % 02/17/24 19:32 Eos % (Auto) 0.0 % 02/17/24:32 Baso % (Auto) 0.2 % 02/17/24:32 Neut # (Auto) 11.62 10^3/uL (1.8-7.7) H 02/17/24 19:32 Lymph # (Auto) 0.8 10^3/uL (0.8-4.8) 02/17/24 19:32 Orange # (Auto) 0.6 10^3/uL (0.2-0.9) 02/17/24 19: Eos # (Auto) 0.0 10^3/uL (0.0-0.8) 02/17/24 19:32 Baso # (Auto) 0.0 10^3/uL (0.0-0.1) 02/17/24 19:32 Nucleated RBC % (auto) 0 % 02/17/24 19:32 Nucleated RBCs # 0.0 /100WBC 02/17/24 19:32 Sodium 143 mmol/L (136-145) 02/17/24 19:32 Potassium 4.5 mmol/L (3.5-5.1) 02/17/24 19:32 Chloride 107 mmol/L (98-107) 02/17/24 19:32 Carbon Dioxide 26 mmol/L (22-29) 02/17/24 19:32 Anion Gap 14.5 (5-19) 02/17/24 19:32 BUN 22 mg/dL (8-23) 02/17/24 19:32 Creatinine 1.1 mg/dL (0.7-1.2) 02/17/24 19:32 GFR Calculation Not Reportable 02/17/24 19:32 Glucose 111 mg/dL (65-115) 02/17/24 19:32 Calculated Osmolality 300 mOsm/kg (285-295) H 02/17/24 19:32 Calcium 9.2 mg/dL (8.5-10.5) 02/17/24 19:32 All radiology interpretation(s) finalized by discharge Discharge Plan Discharge Clinical Impression: Fracture of proximal end of tibia, Fracture of fibula, proximal Condition: Stable Prescriptions: No Action atorvastatin 20 mg tablet 20 mg PO BID@0700,2200 furosemide 40 mg tablet 20 mg PO DAILY Hold Instructions: Hold until you speak to your family doctor Rx Instructions: 20 mg PO daily; acetaminophen [Tylenol Arthritis Pain] 650 mg tablet extended release 650 mg PO Q12H PRN calcium carbonate [Antacid (calcium carbonate)] 200 mg calcium (500 mg) tablet,chewable See Rx Instructions PO DAILY PRN Rx Instructions: strength unknown orally daily PRN; tamsulosin 0.4 mg capsule See Rx Instructions .ROUTE .COMPLEX Qty: 180 3RF Dose Instruction: TAKE 1 CAPSULE BY MOUTH TWICE DAILY Rx Instructions: TAKE 1 CAPSULE BY MOUTH TWICE DAILY finasteride 5 mg tablet See Rx Instructions .ROUTE .COMPLEX Qty: 90 3RF Dose Instruction: TAKE 1 TABLET BY MOUTH DAILY Rx Instructions: TAKE 1 TABLET BY MOUTH DAILY lisinopril 40 mg tablet 40 mg PO DAILY@0700 melatonin 1 mg Tablet 1 mg PO DAILY Referrals: Dai Bassett MD [Primary Care Provider] - Coding Level of Care Code ED [facility] for Bert Apodaca
[2024-02-17] MEDS: tetanus-diphtheria tox (adult) 0.5 mL SYRINGE IM (18:18)
--- NOTE | 2024-02-17 18:30 | XRR_ITS ---
PROCEDURE INFORMATION: Exam: XR Chest Exam date and time: 02/17/2024 6:37 PM Age: 78 years old Clinical indication: Screening exam; Pre-operative exam; Other: Possible surgery due to injury TECHNIQUE: Imaging protocol: Radiologic exam of the chest. Views: 1 view. COMPARISON: CR XR chest 1V portable [id number] 08/07/2020 1:37 PM FINDINGS: Lungs: Unremarkable. No consolidation. Pleural spaces: Unremarkable. No pleural effusion. No pneumothorax. Heart/Mediastinum: Mild cardiomegaly. Bones/joints: Unremarkable. XR/XR chest 1V [id number] IMPRESSION: Negative for acute pulmonary disease.
--- NOTE | 2024-02-17 18:30 | XRR_ITS ---
PROCEDURE INFORMATION: Exam: XR Left Ankle Exam date and time: 02/17/2024 6:33 PM Age: 78 years old Clinical indication: Injury or trauma; Fall; Other: Unknown TECHNIQUE: Imaging protocol: Radiologic exam of the left ankle. Views: 1 or 2 views. COMPARISON: CR XR tibia fibula LT 2V [id number] 02/17/2024 6:20 PM FINDINGS: Bones/joints: Talar beak. Osseous calcaneal spurring. Negative for acute fracture. Normal joint space alignment. Soft tissues: Soft tissue swelling. XR/XR ankle LT 2V [id number] IMPRESSION: Negative for acute fracture.
--- NOTE | 2024-02-17 19:20 | ECG_ITS ---
[facility] Test Date: 2024-02-17 Pat Name: Aquilino Roger Department: Room: Gender: Male Health Services Director: : 1945 Requested By: Malinda Ortiz Order Number: [id number] Hale MD: Christiano Sandoval M.D. Measurements Intervals [place] Rate: 71 P: 0 MD: 0 QRS: 6 QRSD: 103 T: 50 QT: 389 QTc: 425 Interpretive Statements ATRIAL FIBRILLATION Compared to ECG 11/12/2020 12:48:29 No significant changes Electronically Signed On 02-18-2024 9:21:41 CDT by Christiano Sandoval M.D. [id number]
[2024-02-17 19:45] LABS: Basophils % 0.2 %; Hematocrit 42.9 % (37-53); Lymphocytes # 0.8 10^3/uL (0.8-4.8); Lymphocytes % 6.1 %; Mean Corpuscular HGB Conc 34.7 g/dL (30-55); Mean Corpuscular Hemoglobin 32.6 pg (27-33); Mean Corpuscular Volume 93.9 fl (82-101); Mean Platelet Volume 9.6 fL (7.4-10.4); Monocytes # 0.6 10^3/uL (0.2-0.9); Monocytes % 4.5 %; Neutrophils # 11.62 10^3/uL (1.8-7.7); Neutrophils % 88.7 %; Nucleated Red Blood Cells % 0 %; Platelet Count 181 10^3/cmm (157-399); Red Blood Count 4.57 10^6/uL (3.85-5.65); Red Cell Distribution Width 11.7 % (12.1-15.1)
[2024-02-17 19:58] LABS: Anion Gap 14.5 (5-19); Blood Urea Nitrogen 22 mg/dL (8-23); Calcium 9.2 mg/dL (8.5-10.5); Carbon Dioxide 26 mmol/L (22-29); Chloride 107 mmol/L (98-107); Glucose 111 mg/dL (65-115); Osmolality Calculated 300 mOsm/kg (285-295); Potassium 4.5 mmol/L (3.5-5.1); Sodium 143 mmol/L (136-145)
--- NOTE | 2024-02-17 21:00 | CTR_ITS ---
PROCEDURE INFORMATION: Exam: CT Left Lower Extremity Without Contrast; Lower Leg Exam date and time: 02/17/2024 9:25 PM Age: 78 years old Clinical indication: Injury or trauma; Fall; Other: Pain; Additional info: Ankle pain TECHNIQUE: Imaging protocol: CT of the left lower extremity without contrast was performed. Exam focused on the lower leg. Radiation optimization: All CT scans at this facility use at least one of these dose optimization techniques: automated exposure control; mA and/or kV adjustment per patient size (includes targeted exams where dose is matched to clinical indication); or iterative reconstruction. COMPARISON: CR XR tibia fibula LT 2V [id number] 02/17/2024 6:20 PM RADIATION DOSE METRICS: Total DLP (mGy-cm): 191.6 FINDINGS: Bones/joints: Demineralized bones. Proximal tibia and fibular fractures are redemonstrated as described by the plain film radiographs. Knee joint spaces are moderately narrowed with marginal osteophyte spurring. Linear postsurgical lucent changes in the patellar noted. Soft tissues: Diffuse subcutaneous soft tissue edema. Vasculature: Venous varicosities. CT/CT lower leg LT wo con* [id number] IMPRESSION: Acute fractures proximal left tibia and fibula.
[2024-02-17] MEDS: HYDROcodone-acetaminophen 10-325 mg Tablet 1 TAB PO (22:23)
== END 2024-02-17 22:52 | disposition home or self-care (01) ==
PROVIDERS: Emergency Provider Emergency Medicine; PCP Family Medicine
DX: S82.102A Unspecified fracture of upper end of left tibia, initial encounter for closed fracture (principal); S82.832A Other fracture of upper and lower end of left fibula, initial encounter for closed fracture; Z87.891 Personal history of nicotine dependence; W13.3XXA Fall through floor, initial encounter; Z23 Encounter for immunization
CPT/HCPCS: 29530; 36415; 71045; 73562; 73590; 73600; 73700; 80048; 85025; 90471; 90714; 93005; 99285; E0114

== ENCOUNTER 2024-06-21 09:18 | Oncology outpatient (recurring) (ONCR) | payer OTHER, SELFPAY ==
[2024-06-21 09:48] LABS: Hematocrit 42.5 % (37-53)
[2024-06-21 10:20] VITALS: BP 138/74; PULSE 78; RESP 16; TEMP 36.6; O2SAT 96
== END 2024-07-10 23:59 | disposition home or self-care (01) ==
LOC: ONCMED 09:19
PROVIDERS: Internal Medicine Medical Oncology; PCP Family Medicine; Visit Provider Nurse Practitioner Family
DX: E83.119 Hemochromatosis, unspecified (principal)
CPT/HCPCS: 36415; 85014; 85018; 99195

== ENCOUNTER → 2024-08-22 12:43 | Outpatient (BNVA) | payer OTHER, SELFPAY | PROVIDERS: PCP Family Medicine; Visit Provider Nurse Practitioner Family | DX: E83.119 Hemochromatosis, unspecified (principal) | CPT/HCPCS: 80053; 82728; 85025 ==

== ENCOUNTER 2024-08-24 12:30 | Oncology outpatient (recurring) (ONCR) | payer OTHER, SELFPAY ==
[2024-08-24 13:43] VITALS: BP 120/78; PULSE 78; RESP 18; TEMP 36.6; O2SAT 98
== END 2024-09-09 23:59 | disposition home or self-care (01) ==
PROVIDERS: PCP Family Medicine; Visit Provider Nurse Practitioner Family
DX: E83.119 Hemochromatosis, unspecified (principal); Z79.899 Other long term (current) drug therapy; Z87.891 Personal history of nicotine dependence
CPT/HCPCS: 99195; 99213

== ENCOUNTER → 2024-09-18 13:21 | Outpatient (BNVA) | payer OTHER, SELFPAY | PROVIDERS: PCP Family Medicine; Referring Provider Nurse Practitioner Family; Visit Provider Nurse Practitioner Family | DX: E83.119 Hemochromatosis, unspecified (principal) | CPT/HCPCS: 80053; 82728; 85025 ==

== ENCOUNTER 2024-09-21 12:44 | Oncology outpatient (recurring) (ONCR) | payer OTHER, SELFPAY ==
[2024-09-21 14:36] VITALS: BP 166/84; PULSE 88; RESP 16; TEMP 36.6; O2SAT 96
== END 2024-10-10 23:59 | disposition home or self-care (01) ==
LOC: ONCMED 12:44
PROVIDERS: PCP Family Medicine; Visit Provider Nurse Practitioner Family
DX: E83.119 Hemochromatosis, unspecified (principal)
CPT/HCPCS: 99195

== ENCOUNTER → 2024-10-25 13:19 | Outpatient (BNVA) | payer MEDICARE, SELFPAY | PROVIDERS: PCP Family Medicine; Visit Provider Nurse Practitioner Family | DX: E83.119 Hemochromatosis, unspecified (principal) | CPT/HCPCS: 82728; 85025 ==

== ENCOUNTER 2024-10-26 11:56 | Oncology outpatient (recurring) (ONCR) | payer OTHER, SELFPAY ==
[2024-10-26 12:48] LABS: Basophils % 0.6 %; Eosinophils # 0.1 10^3/uL (0.0-0.8); Eosinophils % 2.6 %; Hematocrit 42.4 % (37-53); Lymphocytes # 1.5 10^3/uL (0.8-4.8); Lymphocytes % 27.5 %; Mean Corpuscular HGB Conc 34.4 g/dL (30-55); Mean Corpuscular Hemoglobin 32.2 pg (27-33); Mean Corpuscular Volume 93.6 fl (82-101); Mean Platelet Volume 9.8 fL (7.4-10.4); Monocytes # 0.4 10^3/uL (0.2-0.9); Neutrophils # 3.38 10^3/uL (1.8-7.7); Neutrophils % 61.9 %; Nucleated Red Blood Cells % 0 %; Platelet Count 198 10^3/cmm (157-399); Red Blood Count 4.53 10^6/uL (3.85-5.65); Red Cell Distribution Width 11.9 % (12.1-15.1); White Blood Count 5.45 10^3/uL (3.29-11.43)
[2024-10-26 13:43] LABS: Ferritin 134 ng/mL (30-400)
== END 2024-11-10 23:59 | disposition home or self-care (01) ==
PROVIDERS: PCP Family Medicine; Visit Provider Nurse Practitioner Family
DX: E83.119 Hemochromatosis, unspecified (principal); Z79.899 Other long term (current) drug therapy
CPT/HCPCS: 36415; 82728; 85025; 99195

== ENCOUNTER → 2024-11-14 10:43 | Outpatient (BNVA) | payer OTHER, SELFPAY | PROVIDERS: PCP Family Medicine; Visit Provider Internal Medicine | DX: E83.119 Hemochromatosis, unspecified (principal) | CPT/HCPCS: 80053; 82728; 83550; 85025 ==

== ENCOUNTER 2024-11-16 12:54 | Oncology outpatient (recurring) (ONCR) | payer OTHER, SELFPAY | END 2024-12-08 23:59 | disposition home or self-care (01) | PROVIDERS: PCP Family Medicine; Visit Provider Nurse Practitioner Family | DX: E83.119 Hemochromatosis, unspecified (principal); Z79.899 Other long term (current) drug therapy | CPT/HCPCS: 99195; 99213 ==

== ENCOUNTER → 2024-12-12 11:37 | Outpatient (BNVA) | payer OTHER, SELFPAY | PROVIDERS: PCP Family Medicine; Visit Provider Internal Medicine | DX: E83.119 Hemochromatosis, unspecified (principal) | CPT/HCPCS: 80053; 82728; 83550; 83615; 85025 ==

== ENCOUNTER → 2025-01-09 10:18 | Outpatient (BNVA) | payer OTHER, SELFPAY | PROVIDERS: PCP Family Medicine; Visit Provider Internal Medicine | DX: E83.119 Hemochromatosis, unspecified (principal) | CPT/HCPCS: 80053; 82728; 83550; 83615; 85025 ==

== ENCOUNTER → 2025-02-05 09:49 | Outpatient (BNVA) | payer OTHER, SELFPAY | PROVIDERS: PCP Family Medicine; Visit Provider Internal Medicine | DX: E83.119 Hemochromatosis, unspecified (principal) | CPT/HCPCS: 80053; 82728; 85025 ==

== ENCOUNTER 2025-02-08 13:23 | Oncology outpatient (recurring) (ONCR) | payer OTHER, SELFPAY ==
--- NOTE | 2024-12-13 14:30 | PC.NURSE ---
6327- Spoke with patient. Reviewed labs, with Ferritin of 86. Per orders for Phlebotomy, if Ferritin is less than 100, no phlebotomy is needed. Patient requests that his appointment be canceled for 12/14/24. 12/12/24- Labs will be given to Dr. Hernandez for review. Patient verbalized understanding to keep follow up lab schedule for 1 month. - Harrison Mcginnis
--- NOTE | 2025-02-08 15:01 | PC.NURSE ---
Verbal order from Dr Hernandez for patient to receive 500 ml normal saline as replacement fluids for phlebotomy. Patient refused replacement fluids after phlebotomy. Dr Hernandez notified.
== END 2025-03-10 23:59 | disposition home or self-care (01) ==
PROVIDERS: PCP Family Medicine; Visit Provider Internal Medicine
DX: E83.119 Hemochromatosis, unspecified (principal); Z79.899 Other long term (current) drug therapy
CPT/HCPCS: 99195; 99213

== ENCOUNTER → 2025-04-10 10:15 | Outpatient (BNVA) | payer OTHER, SELFPAY | PROVIDERS: PCP Family Medicine; Visit Provider Internal Medicine | DX: E83.110 Hereditary hemochromatosis (principal) | CPT/HCPCS: 80053; 82728; 83550; 83615; 85025 ==

== ENCOUNTER 2025-04-12 12:50 | Oncology outpatient (recurring) (ONCR) | payer OTHER, SELFPAY | END 2025-05-10 23:59 | disposition home or self-care (01) | PROVIDERS: PCP Family Medicine; Visit Provider Internal Medicine | DX: E83.110 Hereditary hemochromatosis (principal); Z79.899 Other long term (current) drug therapy; E80.7 Disorder of bilirubin metabolism, unspecified | CPT/HCPCS: 99195; 99214 ==

== ENCOUNTER → 2025-05-17 13:13 | Outpatient (BNVA) | payer OTHER, SELFPAY | PROVIDERS: PCP Family Medicine; Visit Provider Nurse Practitioner Family | DX: E83.110 Hereditary hemochromatosis (principal) | CPT/HCPCS: 80053; 82728; 83550; 85025 ==

== ENCOUNTER → 2025-06-12 09:20 | Outpatient (BNVA) | payer OTHER, SELFPAY | PROVIDERS: PCP Family Medicine; Visit Provider Nurse Practitioner Family | DX: E83.110 Hereditary hemochromatosis (principal) | CPT/HCPCS: 80053; 82728; 85025 ==

== ENCOUNTER 2025-06-14 12:05 | Oncology outpatient (recurring) (ONCR) | payer OTHER, SELFPAY ==
[2025-06-14 12:30] VITALS: BP 112/78; PULSE 78; RESP 17; TEMP 36.6; O2SAT 97
== END 2025-07-10 23:59 | disposition home or self-care (01) ==
PROVIDERS: PCP Family Medicine; Visit Provider Internal Medicine
DX: E83.110 Hereditary hemochromatosis (principal); Z87.891 Personal history of nicotine dependence; Z79.899 Other long term (current) drug therapy
CPT/HCPCS: 99195; 99213

== ENCOUNTER → 2025-08-13 09:57 | Outpatient (BNVA) | payer OTHER, SELFPAY | PROVIDERS: PCP Family Medicine; Visit Provider Internal Medicine | DX: E83.110 Hereditary hemochromatosis (principal) | CPT/HCPCS: 80053; 82728; 83615; 85025 ==

== ENCOUNTER 2025-08-16 14:09 | Oncology outpatient (recurring) (ONCR) | payer OTHER, SELFPAY | END 2025-09-09 23:59 | disposition home or self-care (01) | LOC: ONCMED 14:10 | PROVIDERS: PCP Family Medicine; Visit Provider Internal Medicine | DX: E83.110 Hereditary hemochromatosis (principal); R03.0 Elevated blood-pressure reading, without diagnosis of hypertension; Z87.891 Personal history of nicotine dependence | CPT/HCPCS: 99213 ==

== ENCOUNTER → 2025-08-22 09:36 | Outpatient (BNVA) | payer MEDICARE, SELFPAY | PROVIDERS: PCP Family Medicine; Visit Provider Specialist | DX: M17.12 Unilateral primary osteoarthritis, left knee (principal) | CPT/HCPCS: 20610; 73560; 73565; 99204; J1100; J2795; J3301; J9999 ==